=== PATIENT | female | born 1930 | race Caucasian/White ===

== ENCOUNTER 2017-05-31 12:02 | Inpatient (IN) | payer BC, OTHER ==
[~2017-05-31] VITALS: Ht 162.6 cm; Wt 81.4 kg
[~2017-05-31 12:02] MED LIST: ALEN5SOL PO; ATOR-54 PO; BNC/40 PO; CLON0.5T3 PO; CLOP1TAB5 PO; CLX20 PO; GLIM2TAB2 PO; HYDR-2977 PO; SITA50TA3 PO; VISION FORMULA
[2017-05-31] MEDS ORDERED: ONDANSETRON INJ 2 MG/ML 2 ML VIAL IV STA (12:30)
[2017-05-31] MEDS ORDERED: SODIUM CHLORIDE 0.9% 1000ML 1,000 ML IV STA ×2 (12:30→14:45)
--- NOTE | 2017-05-31 12:47 | DIAGNOSTIC IMAGING REPORT ---
CHEST ONE VIEW PORTABLE CLINICAL HISTORY: 87 years-old Female presenting with EVALUATE ALTERED MENTAL STATUS/WEAKNESS. TECHNIQUE: Portable upright AP view of the chest was obtained. COMPARISON: 04/12/2012. FINDINGS: Atherosclerosis of aortic arch. Cardiac silhouette enlarged. Minimal basilar opacities most probably on the right. No pleural effusion or pneumothorax. Osseous structures normal. Upper abdomen normal. IMPRESSION: 1. Minimal basilar opacities most probably on the right, possibly atelectasis. Electronically signed by: Dmitry Simon M.D. 05/31/2017 12:45 PM Dictated Date/Time: 05/31/2017 12:43 PM
[2017-05-31] MEDS ORDERED: DULA0.5I (13:00)
[2017-05-31] MEDS ORDERED: CITA10TA8 PO (13:00)
[2017-05-31] MEDS ORDERED: EXEN1INJ3 INJ (13:00)
[2017-05-31 13:05] LABS: BASO % 0.2 %; BASO ABS # 0.03 K/uL (0-0.2); EOS % 0.1 %; EOS ABS # 0.02 K/uL (0-0.5); HEMATOCRIT 38.9 % (37-47); HEMOGLOBIN 13.1 g/dL (12.0-16.0); IG# 0.11 K/uL (0.00-0.02); LYMPH ABS # 0.99 K/uL (1.2-3.4); MEAN CELL VOLUME 89.2 fL (80-100); MEAN CORPUSCULAR HGB CONC 33.7 g/dl (32-36); MEAN PLATELET VOLUME 10.2 fL (7.4-10.4); MONO % 6.2 %; MONO ABS # 1.02 K/uL (0.11-0.59); NEUT % 86.8 %; NEUT ABS # 14.31 K/uL (1.4-6.5); PLATELET COUNT 132 K/uL (130-400); RED CELL DISTRIBUTION WIDTH SD 45.7 fL (36.4-46.3); WHITE BLOOD COUNT 16.48 K/uL (4.8-10.8)
[2017-05-31 13:18] LABS: INR 1.4 (0.9-1.1); PTT PATIENT 26.9 SECONDS (21.0-31.0)
--- NOTE | 2017-05-31 13:40 | DIAGNOSTIC IMAGING REPORT ---
HEAD WITHOUT CONTRAST (CT) CLINICAL HISTORY: 87 years-old Female presenting with LEUNG, fatigue, slurred speech. TECHNIQUE: Multidetector CT imaging of the head was performed without the use of intravenous contrast. IV contrast: None. A dose lowering technique was used consistent with the principles of ALARA (as low as reasonably achievable). COMPARISON: 03/01/2011. CT DOSE (mGy.cm): The estimated cumulative dose is 1653.38. FINDINGS: Chuck Splitter topogram: Unremarkable. Ventricles and sulci normal in size. Incidental note made of lenin cisterna magna. Brain parenchyma normal in appearance with preserved dickson-white differentiation. No mass effect or midline shift. No hemorrhage or acute territorial infarct. No extra-axial fluid collection. Paranasal sinuses and mastoid air cells clear. Calvarium intact. Focal soft tissue defect may be present at the subcutaneous tissue of the right temporal region. IMPRESSION: 1. No acute intracranial abnormality. 2. Apparent soft tissue defect of the subcutaneous tissue in the right temporal region. This may be artifactual. Correlate clinically. Electronically signed by: Dmitry Simon M.D. 05/31/2017 1:38 PM Dictated Date/Time: 05/31/2017 1:34 PM
--- NOTE | 2017-05-31 13:49 | DIAGNOSTIC IMAGING REPORT ---
ABD/PELVIS NO IV OR ORAL CONT CLINICAL HISTORY: 87 years-old Female presenting with lower pain, vomiting, fatigue, back pain. TECHNIQUE: Multidetector CT of the abdomen and pelvis was performed without the use of intravenous contrast. IV contrast: None. A dose lowering technique was used consistent with the principles of ALARA (as low as reasonably achievable). COMPARISON: None. CT DOSE (mGy.cm): The estimated cumulative dose is 1653.38 mGy.cm. 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 Lung bases: Extensive dependent consolidation and volume loss in the right lower lobe likely passive atelectasis secondary to the adjacent small right pleural effusion. Dependent changes also noted in the left lung likely atelectasis. Multichamber enlargement of the heart. Coronary artery calcification. Small pericardial effusion. Liver: The liver has a nodular contour consistent with cirrhosis. Density of the liver borderline for hepatic steatosis. Allowing for noncontrast technique, focal irregular hypodense lesion in the medial left hepatic lobe (series 5 image 167). Biliary: No gross biliary ductal dilatation allowing for noncontrast technique. Mild gallbladder wall thickening. The gallbladder may contain sludge. The gallbladder is not significantly distended. Pancreas: Moderate parenchymal atrophy. Spleen: Few parenchymal calcifications may suggest prior granulomatous infection.. Adrenal glands: Normal noncontrast appearance. Kidneys and ureters: Hypodensity in the lateral interpolar region of the right kidney indeterminate but possibly cyst. Punctate nonobstructing calculus at the lower pole the left kidney adjacent to a possible cyst. No hydronephrosis. Ureters normal. Bladder: Incompletely evaluated secondary to underdistention. Pelvic organs: Uterus surgically absent. Bowel: Anastomosis is noted in the region of the upper rectum likely indicating prior sigmoidectomy. The appendix is poorly visualized within right lower quadrant fluid. No bowel obstruction. Mild wall thickening of the descending duodenum. Peritoneal cavity: Small amount of abdominal pelvic ascites, which is grossly simple appearing. Mild infiltration of the mesentery of the small bowel. No free gas. Lymph nodes: Numerous subcentimeter retroperitoneal lymph nodes noted, possibly reactive. Vasculature: Atherosclerosis of the normal caliber abdominal aorta. Abdominal wall: Focal fat-containing ventral hernias in the supraumbilical midline. One of the hernias contains the antimesenteric wall of transverse colon though no evidence of bowel obstruction is apparent. Mild body wall edema. Nonspecific edema in the lumbar region. Musculoskeletal: Degenerative changes of the spine. IMPRESSION: 1. Findings suspicious for a mass within the liver. Further evaluation with contrast-enhanced CT or MR is recommended, especially given the patient's underlying hepatocellular risk factors. 2. Findings consistent with cirrhosis. The presence of a small amount of abdominal pelvic ascites could suggest portal hypertension, although there is no splenomegaly or gross evidence of varices allowing for noncontrast technique. 3. Gallbladder wall thickening is likely secondary to the presence of cirrhosis and potential portal hypertension. No gallbladder distention to suggest cholecystitis. 4. Postsurgical changes of sigmoidectomy. No bowel obstruction. 5. Limited visualization of the appendix within the right lower quadrant fluid. 6. Right pleural effusion and basilar atelectasis. The report will be called/faxed according to standard departmental protocol. Electronically signed by: Dmitry Simon M.D. 05/31/2017 1:48 PM Dictated Date/Time: 05/31/2017 1:39 PM
[2017-05-31 14:33] LABS: ALBUMIN 3.1 gm/dl (3.4-5.0); ALT/SGPT 88 U/L (12-78); AST/SGOT 133 U/L (15-37); BLOOD UREA NITROGEN 79 mg/dl (7-18); CALCIUM 8.7 mg/dl (8.5-10.1); CARBON DIOXIDE 24 mmol/L (21-32); CREATININE 2.18 mg/dl (0.60-1.20); GLUCOSE 189 mg/dl (70-99); LIPASE 315 U/L (73-393); POTASSIUM 4.2 mmol/L (3.5-5.1); SODIUM 136 mmol/L (136-145)
[2017-05-31 14:41] LABS: ALKALINE PHOSPHATASE 312 U/L (45-117); CKMB 2.7 ng/ml (0.5-3.6); PHOSPHORUS 4.1 mg/dl (2.5-4.9); TOTAL PROTEIN 7.1 gm/dl (6.4-8.2)
[2017-05-31] MEDS ORDERED: CEFTRIAXONE SOD INJ 1 GM ADDVIAL IV STA (14:45)
--- NOTE | 2017-05-31 14:47 | EMERGENCY ROOM VISIT NOTE ---
History Report prepared by Víctor: Ignacio Hall Under the Supervision of: Dr. Taj Watters D.O. 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 She was recently seen by her PCP and advised to come to the ED for evaluation. She notes increased fatigue, tiredness, exhaustion, vomiting, headaches, abdominal pain, rhinorrhea , and productive cough with yellow sputum. She currently rates her pain a 3/10 in severity. She has vomited last night and this morning. She reports chest pain that has since resolved itself. She notes that she has used a heat pad, which has provided some mild relief. She normally ambulates without issue. She notes that she has been eating and drinking, though she has not been able to keep any food or liquids down. She has a history of diabetes. She notes that she has not checked her sugar today. She denies taking any new medications. She denies any history of smoking or alcohol use. She is currently taking Vytorin, which she notes is new. She notes that she has taken her medications today. She denies any fevers, shortness of breath, back pain, diarrhea, leg pain, or leg swelling. 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 She denies any leg pain or leg swelling. Review of Systems See HPI for pertinent positives & negatives. A total of 10 systems reviewed and were otherwise negative. Past Medical & Surgical Medical Problems: (1) ELYSE (acute kidney injury) (2) Ascites (3) Benign essential hypertension (4) colon cancer (5) Diabetes mellitus type 2 (6) Hyperlipidemia Family History No pertinent family history reported. Social History Smoking Status: Never Smoker Marital Status: Current/Historical Medications Scheduled Atorvastatin (Lipitor), 20 MG PO DAILY Citalopram Hydrobromide (Celexa), 10 MG PO DAILY Clonazepam (Klonopin), 1 MG PO HS Clopidogrel Bisulfate (Plavix), 75 MG PO DAILY Exenatide (Bydureon), 2 MG INJ WK Glimepiride (Glimepiride), 4 MG PO BID Hydralazine HCl (Hydralazine HCl), 10 MG PO BID Miscellaneous Medications Dulaglutide (Trulicity) Allergies Coded Allergies: Erythromycin (Verified Allergy, Unknown, 05/31/17) Physical Exam Vital Signs Date Time Temp Pulse Resp B/P (MAP) Pulse Ox O2 Delivery O2 Flow Rate FiO2 05/31/17 15:52 80 20 95 05/31/17 15:37 82 14 96 05/31/17 15:22 80 21 96 05/31/17 15:07 80 18 96 05/31/17 15:02 81 18 95 05/31/17 14:32 79 17 95 05/31/17 14:02 81 18 96 05/31/17 13:36 81 18 122/70 97 Nasal Cannula 3.0 05/31/17 13:36 122/70 05/31/17 13:04 Nasal Cannula 3.0 05/31/17 13:02 79 20 90 05/31/17 12:50 Room Air 05/31/17 12:32 76 22 93 05/31/17 12:30 98 Room Air 05/31/17 12:25 81 05/31/17 12:23 120/69 05/31/17 12:11 36.9 78 20 115/77 91 Room Air Physical Exam GENERAL: Patient is listless, slow to respond to questions. Does not appear to be in pain. EYES: The conjunctivae are clear. The pupils are round and reactive. EARS, NOSE, MOUTH AND THROAT: The nose is without any evidence of any deformity. Mucous membranes are moist tongue is midline NECK: The neck is nontender and supple. RESPIRATORY: Normal respiratory effort is noted there is no evidence of wheezing rhonchi or rales CARDIOVASCULAR: Regular rate and rhythm noted there no murmurs rubs or gallops normal S1 normal S2 GASTROINTESTINAL: The abdomen is mildly distended, but soft. Bowel sounds are present in all quadrants. No guarding or rigidity appreciated. PELVIS: The Pelvis is stable. No tenderness to palpation is noted. BACK: No midline tenderness or or step-off noted range of motion in flexion extension as well as rotation no signs of muscle spasm noted MUSCULOSKELETAL/EXTREMITIES: There is no evidence of gross deformity full range of motion is noted in the hips and shoulders. Pedal edema bilaterally. SKIN: There is no obvious evidence of any rash. There are no petechiae, pallor or cyanosis noted. NEUROLOGIC: Speech was pressured but understandable. Strength diminished bilaterally. No facial droop appreciated. Medical Decision & Procedures ER Provider Diagnostic Interpretation: Radiology results as stated below per my review and radiologist interpretation: CHEST ONE VIEW PORTABLE CLINICAL HISTORY: 87 years-old Female presenting with EVALUATE ALTERED MENTAL STATUS/WEAKNESS. TECHNIQUE: Portable upright AP view of the chest was obtained. COMPARISON: 04/12/2012. FINDINGS: Atherosclerosis of aortic arch. Cardiac silhouette enlarged. Minimal basilar opacities most probably on the right. No pleural effusion or pneumothorax. Osseous structures normal. Upper abdomen normal. IMPRESSION: 1. Minimal basilar opacities most probably on the right, possibly atelectasis. Electronically signed by: Dmitry Simon M.D. 05/31/2017 12:45 PM Dictated Date/Time: 05/31/2017 12:43 PM HEAD WITHOUT CONTRAST (CT) CLINICAL HISTORY: 87 years-old Female presenting with LEUNG, fatigue, slurred speech. TECHNIQUE: Multidetector CT imaging of the head was performed without the use of intravenous contrast. IV contrast: None. A dose lowering technique was used consistent with the principles of ALARA (as low as reasonably achievable). COMPARISON: 03/01/2011. CT DOSE (mGy.cm): The estimated cumulative dose is 1653.38. 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 Ventricles and sulci normal in size. Incidental note made of lenin cisterna magna. Brain parenchyma normal in appearance with preserved dickson-white differentiation. No mass effect or midline shift. No hemorrhage or acute territorial infarct. No extra-axial fluid collection. Paranasal sinuses and mastoid air cells clear. Calvarium intact. Focal soft tissue defect may be present at the subcutaneous tissue of the right temporal region. IMPRESSION: 1. No acute intracranial abnormality. 2. Apparent soft tissue defect of the subcutaneous tissue in the right temporal region. This may be artifactual. Correlate clinically. Electronically signed by: Dmitry Simon M.D. 05/31/2017 1:38 PM Dictated Date/Time: 05/31/2017 1:34 PM ABD/PELVIS NO IV OR ORAL CONT CLINICAL HISTORY: 87 years-old Female presenting with lower pain, vomiting, fatigue, back pain. TECHNIQUE: Multidetector CT of the abdomen and pelvis was performed without the use of intravenous contrast. IV contrast: None. A dose lowering technique was used consistent with the principles of ALARA (as low as reasonably achievable). COMPARISON: None. CT DOSE (mGy.cm): The estimated cumulative dose is 1653.38 mGy.cm. 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 Lung bases: Extensive dependent consolidation and volume loss in the right lower lobe likely passive atelectasis secondary to the adjacent small right pleural effusion. Dependent changes also noted in the left lung likely atelectasis. Multichamber enlargement of the heart. Coronary artery calcification. Small pericardial effusion. Liver: The liver has a nodular contour consistent with cirrhosis. Density of the liver borderline for hepatic steatosis. Allowing for noncontrast technique, focal irregular hypodense lesion in the medial left hepatic lobe (series 5 image 167). Biliary: No gross biliary ductal dilatation allowing for noncontrast technique. Mild gallbladder wall thickening. The gallbladder may contain sludge. The gallbladder is not significantly distended. Pancreas: Moderate parenchymal atrophy. Spleen: Few parenchymal calcifications may suggest prior granulomatous infection.. Adrenal glands: Normal noncontrast appearance. Kidneys and ureters: Hypodensity in the lateral interpolar region of the right kidney indeterminate but possibly cyst. Punctate nonobstructing calculus at the lower pole the left kidney adjacent to a possible cyst. No hydronephrosis. Ureters normal. Bladder: Incompletely evaluated secondary to underdistention. Pelvic organs: Uterus surgically absent. Bowel: Anastomosis is noted in the region of the upper rectum likely indicating prior sigmoidectomy. The appendix is poorly visualized within right lower quadrant fluid. No bowel obstruction. Mild wall thickening of the descending duodenum. Peritoneal cavity: Small amount of abdominal pelvic ascites, which is grossly simple appearing. Mild infiltration of the mesentery of the small bowel. No free gas. Lymph nodes: Numerous subcentimeter retroperitoneal lymph nodes noted, possibly reactive. Vasculature: Atherosclerosis of the normal caliber abdominal aorta. Abdominal wall: Focal fat-containing ventral hernias in the supraumbilical midline. One of the hernias contains the antimesenteric wall of transverse colon though no evidence of bowel obstruction is apparent. Mild body wall edema. Nonspecific edema in the lumbar region. Musculoskeletal: Degenerative changes of the spine. IMPRESSION: 1. Findings suspicious for a mass within the liver. Further evaluation with contrast-enhanced CT or MR is recommended, especially given the patient's underlying hepatocellular risk factors. 2. Findings consistent with cirrhosis. The presence of a small amount of abdominal pelvic ascites could suggest portal hypertension, although there is no splenomegaly or gross evidence of varices allowing for noncontrast technique. 3. Gallbladder wall thickening is likely secondary to the presence of cirrhosis and potential portal hypertension. No gallbladder distention to suggest cholecystitis. 4. Postsurgical changes of sigmoidectomy. No bowel obstruction. 5. Limited visualization of the appendix within the right lower quadrant fluid. 6. Right pleural effusion and basilar atelectasis. The report will be called/faxed according to standard departmental protocol. Electronically signed by: Dmitry Simon M.D. 05/31/2017 1:48 PM Dictated Date/Time: 05/31/2017 1:39 PM Laboratory Results 05/31/17 12:40 Red Blood Count 4.36, Mean Corpuscular Volume 89.2, Mean Corpuscular Hemoglobin 30.0, Mean Corpuscular Hemoglobin Concent 33.7, Mean Platelet Volume 10.2, Neutrophils (%) (Auto) 86.8, Lymphocytes (%) (Auto) 6.0, Monocytes (%) (Auto) 6.2, Eosinophils (%) (Auto) 0.1, Basophils (%) (Auto) 0.2, Neutrophils # (Auto) 14.31, Lymphocytes # (Auto) 0.99, Monocytes # (Auto) 1.02, Eosinophils # (Auto) 0.02, Basophils # (Auto) 0.03 05/31/17 12:40 Test 05/31/17 00:00 05/31/17 12:40 05/31/17 12:52 05/31/17 13:02 Urine WBC (Auto) >30 /hpf (0-5) Urine RBC (Auto) 10-30 /hpf (0-4) Urine Hyaline Casts (Auto) 1-5 /lpf (0-5) Urine Epithelial Cells (Auto) 10-20 /lpf (0-5) Urine Bacteria (Auto) 4+ (NEG) Urine Crystals CALCIUM OXALATE (NONE Urine Pathogenic Casts /lpf (0) White Blood Count 16.48 K/uL (4.8-10.8) Red Blood Count 4.36 M/uL (4.2-5.4) Hemoglobin 13.1 g/dL (12.0-16.0) Hematocrit 38.9 % (37-47) Mean Corpuscular Volume 89.2 fL (80-100) Mean Corpuscular Hemoglobin 30.0 pg (25-34) Mean Corpuscular Hemoglobin Concent 33.7 g/dl (32-36) Platelet Count 132 K/uL (130-400) Mean Platelet Volume 10.2 fL (7.4-10.4) Neutrophils (%) (Auto) 86.8 % Lymphocytes (%) (Auto) 6.0 % Monocytes (%) (Auto) 6.2 % Eosinophils (%) (Auto) 0.1 % Basophils (%) (Auto) 0.2 % Neutrophils # (Auto) 14.31 K/uL (1.4-6.5) Lymphocytes # (Auto) 0.99 K/uL (1.2-3.4) Monocytes # (Auto) 1.02 K/uL (0.11-0.59) Eosinophils # (Auto) 0.02 K/uL (0-0.5) Basophils # (Auto) 0.03 K/uL (0-0.2) RDW Standard Deviation 45.7 fL (36.4-46.3) RDW Coefficient of Variation 14.0 % (11.5-14.5) Immature Granulocyte % (Auto) 0.7 % Immature Granulocyte # (Auto) 0.11 K/uL (0.00-0.02) Prothrombin Time 14.3 SECONDS (9.0-12.0) Prothromb Time International Ratio 1.4 (0.9-1.1) Activated Partial Thromboplast Time 26.9 SECONDS (21.0-31.0) Partial Thromboplastin Ratio 1.0 Anion Gap 9.0 mmol/L (3-11) Est Creatinine Clear Calc Drug Dose 18.4 ml/min Estimated GFR () 22.7 Estimated GFR (Non- 19.6 BUN/Creatinine Ratio 36.1 (10-20) Calcium Level 8.7 mg/dl (8.5-10.1) Phosphorus Level 4.1 mg/dl (2.5-4.9) Magnesium Level 2.4 mg/dl (1.8-2.4) Total Bilirubin 0.9 mg/dl (0.2-1) Direct Bilirubin 0.3 mg/dl (0-0.2) Aspartate Amino Transf (AST/SGOT) 133 U/L (15-37) Alanine Aminotransferase (ALT/SGPT) 88 U/L (12-78) Alkaline Phosphatase 312 U/L (45-117) Ammonia 26.0 umol/L (11-32) Total Creatine Kinase 99 U/L (26-192) Creatine Kinase MB 2.7 ng/ml (0.5-3.6) Creatine Kinase MB Ratio 2.7 (0-3.0) Troponin I < 0.015 ng/ml (0-0.045) Pro-B-Type Natriuretic Peptide 1053 pg/ml (0-1800) Total Protein 7.1 gm/dl (6.4-8.2) Albumin 3.1 gm/dl (3.4-5.0) Lipase 315 U/L (73-393) Thyroid Stimulating Hormone (TSH) 2.200 uIu/ml (0.300-4.500) Free Thyroxine 1.59 ng/dl (0.80-1.60) Hepatitis B Surface Antigen NEG (NEG) Hepatitis C Antibody NEG (NEG) Bedside Lactic Acid Venous 3.04 mmol/L (0.90-1.70) Venous Blood pH 7.37 (7.36-7.41) Venous Blood Partial Pressure CO2 41 mmHg (38.0-50.0) Venous Blood Partial Pressure O2 31 mmHg Venous Blood HCO3 23 mmol/L Venous Blood Oxygen Saturation < 60.0 % Venous Blood Base Excess -2.4 mEq/L Test 05/31/17 14:30 Laboratory results per my review. Medications Administered Medications (Trade) Dose Ordered Sig/Paolo Route Start Time Stop Time Status Last Admin Dose Admin Sodium Chloride 1,000 ml @ 999 mls/hr Q1H1M STAT IV 05/31/17 12:30 05/31/17 13:30 DC 05/31/17 12:57 999 MLS/HR Ondansetron HCl (Zofran Inj) 4 mg NOW STAT IV 05/31/17 12:30 05/31/17 12:31 DC 05/31/17 12:57 4 MG Ceftriaxone Sodium (Rocephin Inj) 1 gm NOW STAT IV 05/31/17 14:45 05/31/17 14:46 DC 05/31/17 14:59 1 GM Sodium Chloride 1,000 ml @ 999 mls/hr Q1H1M STAT IV 05/31/17 14:45 05/31/17 15:45 DC 05/31/17 14:45 999 MLS/HR ECG Indication: other (fatigue) Rate (beats per minute): 78 Rhythm: normal sinus Findings: nonspecific-ST abn, no ectopy Change: no significant change (When compared to 04/12/2012) ED Course 1220: The patient was evaluated in room B2. A complete history and physical examination were performed. 1230: Ordered Zofran 4mg Iv and NSS 1,000 ml @ 999 mls/hr IV 1320:I reassessed the patient at this time. She is resting comfortably. 1445: Ordered NSS 1,000 ml @ 999 mls/hr IV amd Rocephin 1 gm IV 1455: I spoke with Dr. Pollock, hospitalist. We discussed the patients case. The patient will be evaluated by the [facility] for further management. Medical Decision Prior records/ancillary studies reviewed and summarized above. Nursing notes reviewed. The patient's history was concerning for weakness. Differential diagnosis: Etiologies such as metabolic, infection, hypo/hyperglycemia, electrolyte abnormalities, cardiac sources, intracerebral event, toxicologic, neurologic, as well as others were entertained. The patient is an 87-year-old female who presented to the emergency department from her primary care physician's office. The patient's primary care physician called the emergency department and discussed her presentation with me. She was very concerned that the patient may have suffered a stroke. I discussed the patient's laboratory and radiographic studies with her and her significant other. Her presentation appear to be consistent with an overall encephalopathy and generalized weakness. She was found have signs of urinary tract infection but also has a CT which showed ascites and a possible mass in her liver. She does have a history of a colon cancer in the past but there is no definite metastasis at that time. I discussed her case with the on-call [facility] hospitalist group. They've agreed to evaluate the patient in the emergency department for further management and disposition. The patient was treated with IV fluids and IV antibiotics. She was reevaluated multiple times. Medication Reconcilliation Current Medication List: was personally reviewed by me Blood Pressure Screening Patient's blood pressure: Normal blood pressure Consults Time Called: 1450 Consulting Physician: Dr. Pollock hospitalist Returned Call: [address] Pollock hospitalist. We discussed the patients case. The patient will be evaluated by the [facility] Hospitalist Group for further management. Impression Primary Impression: Weakness Additional Impressions: Liver mass Dehydration UTI (urinary tract infection) Acute kidney injury Scribe Attestation The scribe's documentation has been prepared under my direction and personally reviewed by me in its entirety. I confirm that the note above accurately reflects all work, treatment, procedures, and medical decision making performed by me. Departure Information Dispostion Being Evaluated By Hospitalist Referrals Avis Morgan D.O. (PCP) Patient Instructions My [facility] Problem Qualifiers Additional Impressions: UTI (urinary tract infection) Urinary tract infection type: acute cystitis Hematuria presence: without hematuria Qualified Codes: N30.00 - Acute cystitis without hematuria
[2017-05-31 15:50] LABS: HEP C IGG 13 YRS+OLDER_RFLX NEG (NEG)
[2017-05-31] MEDS ORDERED: GLUCAGON FOR INJ 1 MG VIAL SQ PRN (16:15)
[2017-05-31] MEDS ORDERED: DEXTROSE 50% 50 ML SYR IV PRN (16:15)
[2017-05-31] MEDS ORDERED: GLUCOSE 40% GEL 15 GM TUBE PO PRN (16:15)
[2017-05-31] MEDS ORDERED: GLUCOSE 10 TABS/TUBE PO PRN (16:15)
--- NOTE | 2017-05-31 16:50 | HISTORY & PHYSICAL EXAMINATION ---
DATE OF ADMISSION: 05/31/2017 PRIMARY CARE PHYSICIAN: Dr. Avis Morgan. CHIEF COMPLAINT: Abdominal distention, discomfort and frequency with weakness and tiredness for the last 2 days. HISTORY OF PRESENT COMPLAINT: She is an 87-year-old female with significant past medical history of diabetes type 2, chronic kidney disease stage III, anxiety, hyperlipidemia, hypertension, and also history of malignant melanoma of the skin and colon cancer, apparently has been complaining of nonspecific URI symptoms followed by abdominal distention and discomfort for the last 2 days. She also complains to have extreme tiredness and fatigue with it. She complains to have frequent low volume urine without any dysuria. She does not have any fever, chills or rigors. She was seen in the clinic today and I have sent in to the ER for further evaluation. In the Emergency Room, she was noted to have abdominal distention with ascites. CT scan did show cirrhotic liver and her white count elevated and UA suggestive of infection, but given the history of colon cancer, the liver mass and/or cirrhosis has to be evaluated for that. From this point, she was admitted to medical floor for continuation of care. PAST MEDICAL HISTORY: Significant for type 2 diabetes on insulin, chronic kidney disease stage III, anxiety, hyperlipidemia, hypertension, history of malignant melanoma of the skin and also history of colon cancer status post surgery many years ago. PAST SURGICAL HISTORY: Significant for partial colectomy in 2005, removal of ovary with hysterectomy in 1998. FAMILY HISTORY: Nothing significant. SOCIAL HISTORY: She is . She has 2 children. She lives with her . She never smoked. She uses alcohol very rarely and she has been reasonably ambulant. ALLERGIES: SHE IS ALLERGIC TO ERYTHROMYCIN. MEDICATIONS: She has been taking atorvastatin 20 mg daily, glimepiride 4 mg b.i.d., Trulicity 1.5 mg/4.5 mL by injection as directed, exenatide 2 mg injection 2 mg per week. She also takes amlodipine 10 mg daily, Plavix 75 mg daily, Klonopin 0.5 mg at night, hydralazine 10 mg twice daily and Celexa 10 mg. She takes losartan 50 mg tablet as well and hydrochlorothiazide 12.5 mg daily, and calcium with vitamin D. REVIEW OF SYSTEMS: Other systems reviewed are unremarkable except for those mentioned in history of present complaint. PHYSICAL EXAMINATION: GENERAL: In the Emergency Room, she was not having any acute distress, but she looks pale and dry. VITAL SIGNS: Her temperature is 36.9, pulse of 76, blood pressure 120/69, saturation 93% on room air. HEENT: Unremarkable except dryness of the mucous membrane. NECK: Supple. CHEST: Clear to auscultate bilaterally. HEART: S1, S2 regular. ABDOMEN: Distended, soft, mildly tender in the hypogastrium. Renal angles were not tender. Cutaneous edema and moderate ascites on clinical examination. Degroot sign negative. EXTREMITIES: 1+ edema bilaterally. MUSCULOSKELETAL SYSTEM: Did not show any acute arthritis involving any joint. CENTRAL NERVOUS SYSTEM: She was alert and awake, oriented, generally weak but no focal sensory and/or motor deficit appreciated. LABORATORY DATA: Noted today - white count 16.48, H&H 13.1/38.9, platelet was 132. Venous blood gas 7.37 pH, pCO2 41 and O2 of 31. Chemistries: Sodium 136, potassium 4.2, chloride 103, carbon dioxide 24, BUN 79, creatinine 2.18, random glucose 189. Bilirubin 0.3, AST 133, ALT 88, alkaline phosphatase 312, ammonia is 26.0. Troponin less than 0.015. Albumin 3.1, TSH 2.2. T4 1.59. INR is 1.4, PTT ratio is 1. UA examination is suggestive of infection, sent for culture. Hepatitis B antigen negative, hepatitis C antibody negative. IMAGING DATA: CT of the head: No acute intracranial findings. Chest x-ray: Minimal bibasilar opacities, probably atelectatic. CT of the abdomen and pelvis reported as findings suspicious for a mass within the liver, further evaluation with contrast enhanced CT or MRI is recommended, especially given this patient's underlying hepatocellular disease factors. Findings consistent with cirrhosis and presence of a small amount of ascites, gallbladder wall thickening without any evidence of cholecystitis, right pleural effusion and basilar atelectasis. EKG was in sinus rhythm, rate of 78 per minute, normal axis, low voltage quality and nonspecific ST-T wave changes. IMPRESSION AND PLAN: 1. Urinary tract infection. The patient will be admitted to medical floor. She was started with intravenous ceftriaxone. Urine has been sent for culture. Will continue ceftriaxone for now. She was advised to drink plenty of fluid. 2. Acute kidney injury. Her creatinine seems to be normal before this episode, clinically she is dehydrated. We will give her adequate amount of IV fluid and monitor the kidney function. She may need nephrology evaluation if the kidney function does not improve with fluid resuscitation. 3. New diagnosis of cirrhosis, most likely secondary to fatty liver disease. We will get hepatitis panel and ultrasound of the abdomen to evaluate requirement for paracentesis. We will get GI evaluation while in the hospital. 4. Hepatic lesion. Will need to evaluate that further by doing an MR or as per GI evaluation. It could be secondary to metastatic disease, given the history of colon cancer. 5. Diabetes type 2 on insulin. Continue with sliding scale coverage while in the hospital. 6. Hyperlipidemia. Holding her statin at this time. 7. Hypertension. Blood pressure seems to be uncontrolled. 8. Gastrointestinal prophylaxis with Protonix. 9. Deep venous thrombosis prophylaxis with subcutaneous heparin. 10. Code status. She will be a full code. In my clinical judgment, the beneficiary meets criteria as per CMS for 2-midnight stay in the hospital. MTDD
[2017-05-31] MEDS: SODIUM CHLORIDE 0.9% 1000ML 1,000 ML IV SCH (17:00)
[2017-05-31 17:09] VITALS: BP 106/67; PULSE 81; TEMP 36.5; O2SAT 95; Ht 162.6 cm; Wt 81.4 kg
[2017-05-31] MEDS ORDERED: SODIUM CHLORIDE 0.65% NA SOLN 45 ML (OCEAN) ONE (19:47)
[2017-05-31] MEDS: CLONAZEPAM 0.5 MG TAB PO SCH (20:23)
[2017-05-31] MEDS: HydrALAZINE 10 MG TAB PO SCH (20:23)
[2017-05-31] MEDS: INSULIN ASPART 100 UNITS/ML 3 ML PEN SC SCH (20:26)
[2017-05-31] MEDS: HEPARIN SOD 5000 UNIT/0.5 ML CARP SQ SCH (20:26)
[2017-05-31 23:35] VITALS: BP 95/61; PULSE 75; TEMP 36.8; O2SAT 94
[2017-05-31 23:36] VITALS: BP 102/63; PULSE 50; TEMP 36.5; O2SAT 96
[2017-06-01] MEDS: SODIUM CHLORIDE 0.9% 1000ML 1,000 ML IV SCH ×2 (02:06→12:30)
[2017-06-01] MEDS: HEPARIN SOD 5000 UNIT/0.5 ML CARP SQ SCH ×3 (06:07→20:15)
[2017-06-01 06:35] LABS: HEMATOCRIT 35.6 % (37-47); HEMOGLOBIN 11.6 g/dL (12.0-16.0); MEAN CELL VOLUME 90.1 fL (80-100); MEAN CORPUSCULAR HEMOGLOBIN 29.4 pg (25-34); MEAN CORPUSCULAR HGB CONC 32.6 g/dl (32-36); MEAN PLATELET VOLUME 10.3 fL (7.4-10.4); PLATELET COUNT 143 K/uL (130-400); RED CELL DISTRIBUTION WIDTH CV 14.1 % (11.5-14.5); WHITE BLOOD COUNT 15.91 K/uL (4.8-10.8)
[2017-06-01 07:06] LABS: ALBUMIN 2.8 gm/dl (3.4-5.0); CALCIUM 7.6 mg/dl (8.5-10.1); CREATININE 2.26 mg/dl (0.60-1.20); POTASSIUM 4.1 mmol/L (3.5-5.1)
[2017-06-01 07:09] LABS: TOTAL PROTEIN 6.3 gm/dl (6.4-8.2)
[2017-06-01 08:17] VITALS: BP 106/66; PULSE 87; TEMP 36.5; O2SAT 91
[2017-06-01] MEDS: HydrALAZINE 10 MG TAB PO SCH ×2 (08:40→20:11)
[2017-06-01] MEDS: CLOPIDOGREL BISULFATE 75 MG TAB PO SCH (08:40)
[2017-06-01] MEDS: CITALOPRAM 20 MG TAB PO SCH (08:40)
[2017-06-01] MEDS: INSULIN ASPART 100 UNITS/ML 3 ML PEN SC SCH ×4 (08:41→20:18)
--- NOTE | 2017-06-01 09:57 | Gastrointestinal Consultation ---
Gastrointestinal Consultation Date of Consultation: Jun 01, 2017 Attending Physician: Dr. Stone Consulting Physician: Dr. Villarreal Reason for Consultation: new finding of cirrhosis on imaging History of Present Illness Patient is a 87 year old female with multiple medical problems including DM, CAD , CKD, HTN, h/o melanoma, and colon cnacer 2006 s/p resection who was admitted with fatigue, vomiting, and abdominal pain. Evaluation in the ER was significant for elevated WBC, BUN and creatitine as well as UA suggestive of a UTI. She was started on IVF hydration and antibiotics. CT scan wiithout oral or IV contrast showed a nodular cirrhotic appearing liver and a ?lesion in the left lobe of the liver. A small amount of pelvic ascites is noted as well. LFTs are mildly elevated, INR is 1.4 and platelet count is 140. Her last colonoscopy was approximately 8-10 years ago and she was told after 79 she did not need another one. Denies and melena or hematochezia. Was never told she was cirrhotic. This AM she is feeling tired but much improved. Ate her breakfast. Drinking coffee and reading the newspaper. No known family history of liver disease. No ETOH history. Long standing diabetes. Past Medical/Surgical History Medical Problems: (1) Acute kidney injury Status: Acute (2) Dehydration Status: Acute (3) Liver mass Status: Acute (4) UTI (urinary tract infection) Status: Acute (5) Weakness Status: Acute Past Medical History: as note din HPI Past Surgical History: SHAAN/BSO colon resection 2005 Family History non-contributory Social History Smoking Status: Never Smoker Alcohol Use: none Drug Use: none Marital Status: Housing Status: lives with family Occupation Status: retired Allergies Coded Allergies: Erythromycin (Verified Allergy, Unknown, 05/31/17) Current Medications Home Meds and Scripts Medications Dose Route/Sig Max Daily Dose Days Date Category Bydureon (Exenatide) 2 Mg Inj 2 Mg INJ WK 05/31/17 Reported Trulicity (Dulaglutide) 1.5 Mg/0.5 Ml Inj 05/31/17 Reported Celexa (Citalopram Hydrobromide) 10 Mg Tab 10 Mg PO DAILY 05/31/17 Reported Hydralazine HCl 10 Mg Tab 10 Mg PO BID 09/23/14 Reported Glimepiride 2 Mg Tab 4 Mg PO BID 4/24/15 Reported Plavix (Clopidogrel Bisulfate) 75 Mg Tab 75 Mg PO DAILY 04/12/12 Reported Lipitor (Atorvastatin) 20 Mg Tab 20 Mg PO DAILY 04/12/12 Reported Klonopin (Clonazepam) 0.5 Mg Tab 1 Mg PO HS 03/25/06 Reported Review of Systems 12 systems reviewed and negative except as noted Physical Exam Date Time Temp Pulse Resp B/P (MAP) Pulse Ox O2 Delivery O2 Flow Rate FiO2 06/01/17 08:17 36.5 87 18 106/66 (79) 91 Nasal Cannula 2.0 06/01/17 00:00 Nasal Cannula 2.0 05/31/17 23:36 36.5 50 18 102/63 (76) 96 Room Air 05/31/17 23:35 36.8 75 16 95/61 (72) 94 Nasal Cannula 2.0 05/31/17 17:09 36.5 81 18 106/67 95 Nasal Cannula 2.0 05/31/17 16:07 80 22 95 05/31/17 15:58 113/60 05/31/17 15:52 80 20 95 05/31/17 15:37 82 14 96 05/31/17 15:22 80 21 96 05/31/17 15:07 80 18 96 05/31/17 15:02 81 18 95 05/31/17 14:32 79 17 95 05/31/17 14:02 81 18 96 05/31/17 13:36 81 18 122/70 97 Nasal Cannula 3.0 05/31/17 13:36 122/70 05/31/17 13:04 Nasal Cannula 3.0 05/31/17 13:02 79 20 90 05/31/17 12:50 Room Air 05/31/17 12:32 76 22 93 05/31/17 12:30 98 Room Air 05/31/17 12:25 81 05/31/17 12:23 120/69 05/31/17 12:11 36.9 78 20 115/77 91 Room Air General Appearance: WD/WN, no apparent distress Eyes: normal inspection, PERRL ENT: normal ENT inspection, hearing grossly normal, pharynx normal Neck: supple, no adenopathy, no JVD Respiratory/Chest: chest non-tender, lungs clear, normal breath sounds, no accessory muscle use Cardiovascular: regular rate, rhythm Abdomen: normal bowel sounds, non tender, soft, + pertinent finding (obese) Extremities: normal range of motion, non-tender, + pedal edema Neurologic/Psych: traveling secretary II-XII nml as tested, no motor/sensory deficits, alert, oriented x 3 Skin: normal color, no jaundice, warm/dry, no rash Laboratory Results Last 24 Hours Test 05/31/17 12:33 05/31/17 12:40 05/31/17 12:52 05/31/17 13:02 Bedside Glucose 204 mg/dl White Blood Count 16.48 K/uL Red Blood Count 4.36 M/uL Hemoglobin 13.1 g/dL Hematocrit 38.9 % Mean Corpuscular Volume 89.2 fL Mean Corpuscular Hemoglobin 30.0 pg Mean Corpuscular Hemoglobin Concent 33.7 g/dl Platelet Count 132 K/uL Mean Platelet Volume 10.2 fL Neutrophils (%) (Auto) 86.8 % Lymphocytes (%) (Auto) 6.0 % Monocytes (%) (Auto) 6.2 % Eosinophils (%) (Auto) 0.1 % Basophils (%) (Auto) 0.2 % Neutrophils # (Auto) 14.31 K/uL Lymphocytes # (Auto) 0.99 K/uL Monocytes # (Auto) 1.02 K/uL Eosinophils # (Auto) 0.02 K/uL Basophils # (Auto) 0.03 K/uL RDW Standard Deviation 45.7 fL RDW Coefficient of Variation 14.0 % Immature Granulocyte % (Auto) 0.7 % Immature Granulocyte # (Auto) 0.11 K/uL Prothrombin Time 14.3 SECONDS Prothromb Time International Ratio 1.4 Activated Partial Thromboplast Time 26.9 SECONDS Partial Thromboplastin Ratio 1.0 Sodium Level 136 mmol/L Potassium Level 4.2 mmol/L Chloride Level 103 mmol/L Carbon Dioxide Level 24 mmol/L Anion Gap 9.0 mmol/L Blood Urea Nitrogen 79 mg/dl Creatinine 2.18 mg/dl Est Creatinine Clear Calc Drug Dose 18.4 ml/min Estimated GFR () 22.7 Estimated GFR (Non- 19.6 BUN/Creatinine Ratio 36.1 Random Glucose 189 mg/dl Calcium Level 8.7 mg/dl Phosphorus Level 4.1 mg/dl Magnesium Level 2.4 mg/dl Total Bilirubin 0.9 mg/dl Direct Bilirubin 0.3 mg/dl Aspartate Amino Transf (AST/SGOT) 133 U/L Alanine Aminotransferase (ALT/SGPT) 88 U/L Alkaline Phosphatase 312 U/L Ammonia 26.0 umol/L Total Creatine Kinase 99 U/L Creatine Kinase MB 2.7 ng/ml Creatine Kinase MB Ratio 2.7 Troponin I < 0.015 ng/ml Pro-B-Type Natriuretic Peptide 1053 pg/ml Total Protein 7.1 gm/dl Albumin 3.1 gm/dl Lipase 315 U/L Thyroid Stimulating Hormone (TSH) 2.200 uIu/ml Free Thyroxine 1.59 ng/dl Hepatitis B Surface Antigen NEG Hepatitis C Antibody NEG Bedside Lactic Acid Venous 3.04 mmol/L Venous Blood pH 7.37 Venous Blood Partial Pressure CO2 41 mmHg Venous Blood Partial Pressure O2 31 mmHg Venous Blood HCO3 23 mmol/L Venous Blood Oxygen Saturation < 60.0 % Venous Blood Base Excess -2.4 mEq/L Test 05/31/17 16:58 05/31/17 19:45 06/01/17 05:39 06/01/17 08:12 Bedside Glucose 147 mg/dl 146 mg/dl 76 mg/dl White Blood Count 15.91 K/uL Red Blood Count 3.95 M/uL Hemoglobin 11.6 g/dL Hematocrit 35.6 % Mean Corpuscular Volume 90.1 fL Mean Corpuscular Hemoglobin 29.4 pg Mean Corpuscular Hemoglobin Concent 32.6 g/dl RDW Standard Deviation 47.0 fL RDW Coefficient of Variation 14.1 % Platelet Count 143 K/uL Mean Platelet Volume 10.3 fL Sodium Level 139 mmol/L Potassium Level 4.1 mmol/L Chloride Level 107 mmol/L Carbon Dioxide Level 21 mmol/L Anion Gap 11.0 mmol/L Blood Urea Nitrogen 83 mg/dl Creatinine 2.26 mg/dl Est Creatinine Clear Calc Drug Dose 17.8 ml/min Estimated GFR () 21.7 Estimated GFR (Non- 18.8 BUN/Creatinine Ratio 36.8 Random Glucose 59 mg/dl Calcium Level 7.6 mg/dl Magnesium Level 2.3 mg/dl Total Bilirubin 0.6 mg/dl Aspartate Amino Transf (AST/SGOT) 138 U/L Alanine Aminotransferase (ALT/SGPT) 79 U/L Alkaline Phosphatase 296 U/L Total Protein 6.3 gm/dl Albumin 2.8 gm/dl Globulin 3.5 gm/dl Albumin/Globulin Ratio 0.8 Impression Patient is a 87 year old female with multiple medical problems including long standing diabetes admitted with generalized weakness and fatigue found to have a UTI. Non-contrast CT showed nodular cirrhotic appearing liver and a ?lesion in the left lobe of the liver. Labs consistent with cirrhosis. With a history of colon cancer a metastatic lesion is a possibility vs primary liver lesion vs benign process. She will need outpatient follow up after discharge. Plan - Management of acute kidney injury and UTI per primary service. - She will need an US of the liver if can be done while she is here. - Will need 4phase contrast CT or the liver or liver MRI once her renal function improves. - Will need outpatient follow up after discharge regarding the new dx of cirrhosis.
[2017-06-01] MEDS ORDERED: CEFTRIAXONE SOD INJ 1,000 MG in DEXTROSE 5% 50ML 50 ML IV SCH (14:00)
[2017-06-01] MEDS ORDERED: VANCOMYCIN INJ 1,000 MG in SODIUM CHLORIDE 0.9% 250ML 250 ML IV SCH (14:30)
[2017-06-01] MEDS ORDERED: VANCOMYCIN CONSULT ACTIVE PRN (14:45)
[2017-06-01] MEDS ORDERED: CEFEPIME CONSULT ACTIVE PRN (14:45)
[2017-06-01] MEDS ORDERED: VANCOMYCIN INJ 2,000 MG in SODIUM CHLORIDE 0.9% 500ML 500 ML IV SCH (15:00)
[2017-06-01 15:10] VITALS: BP 123/71; PULSE 81; TEMP 36.7; O2SAT 90
--- NOTE | 2017-06-01 15:49 | Pharmacy Progress Note ---
Pharmacy Antibiotic Consult Date of Service: Jun 01, 2017. Pharmacy Dosing Scope Pharmacy is consulted to initiate vancomycin IV dosing therapy, order appropriate labs and adjust drug dose/frequency. Subjective The patient is a 87 year old female admitted on May 31, 2017 at 15:55. Objective Height (Feet): 5 Height (Inches): 4.00 Weight (Kilograms): 81.400 Lab Results (24hrs): Test 06/01/17 05:39 06/01/17 09:30 06/01/17 11:34 White Blood Count 15.91 K/uL (4.8-10.8) Red Blood Count 3.95 M/uL (4.2-5.4) Hemoglobin 11.6 g/dL (12.0-16.0) Hematocrit 35.6 % (37-47) Mean Corpuscular Volume 90.1 fL (80-100) Mean Corpuscular Hemoglobin 29.4 pg (25-34) Mean Corpuscular Hemoglobin Concent 32.6 g/dl (32-36) RDW Standard Deviation 47.0 fL (36.4-46.3) RDW Coefficient of Variation 14.1 % (11.5-14.5) Platelet Count 143 K/uL (130-400) Mean Platelet Volume 10.3 fL (7.4-10.4) Sodium Level 139 mmol/L (136-145) Potassium Level 4.1 mmol/L (3.5-5.1) Chloride Level 107 mmol/L (98-107) Carbon Dioxide Level 21 mmol/L (21-32) Anion Gap 11.0 mmol/L (3-11) Blood Urea Nitrogen 83 mg/dl (7-18) Creatinine 2.26 mg/dl (0.60-1.20) Est Creatinine Clear Calc Drug Dose 17.8 ml/min Estimated GFR () 21.7 Estimated GFR (Non- 18.8 BUN/Creatinine Ratio 36.8 (10-20) Random Glucose 59 mg/dl (70-99) Calcium Level 7.6 mg/dl (8.5-10.1) Magnesium Level 2.3 mg/dl (1.8-2.4) Total Bilirubin 0.6 mg/dl (0.2-1) Aspartate Amino Transf (AST/SGOT) 138 U/L (15-37) Alanine Aminotransferase (ALT/SGPT) 79 U/L (12-78) Alkaline Phosphatase 296 U/L (45-117) Total Protein 6.3 gm/dl (6.4-8.2) Albumin 2.8 gm/dl (3.4-5.0) Globulin 3.5 gm/dl (2.5-4.0) Albumin/Globulin Ratio 0.8 (0.9-2) Bedside Glucose 138 mg/dl (70-90) 147 mg/dl (70-90) Assessment & Plan Assessment * 87 yo F started on ceftriaxone yesterday for UTI, being broadened today to cefepime/vancomycin for intra-abdominal / ascitic fluid infection. * SCr significantly elevated to 2.26 mg/dL today, but stable. Unknown baseline , but hx CKD III per H&P. Estimated CrCL no better than 18 mL/min Vancomycin dosing * Goal vancomycin trough 15-20 mcg/mL * Loading dose of 25 mg/kg already ordered/administered * Will not order additional scheduled vancomycin at this time 2nd significant renal dysfunction. Will instead dose via level Plan * No additional vancomycin at this time * Random level with AM labs Pharmacy will continue to follow and will adjust dose/frequency as necessary. Thank you
--- NOTE | 2017-06-01 16:15 | Progress Note ---
Internal Med Progress Note Date of Service: Jun 01, 2017. Provider Documentation: SUBJECTIVE: still feeling same weak and tired minimal ambulation making her tired denies chest pain no abdominal pain afebrile has some cough poor appetite OBJECTIVE: Vital Signs-as noted below Exam: General-alert and oriented. Not in distress ENT-Normal hearing Neck-no neck masses supple Lungs-cta b/l no wheezing no crackles Heart-S1 and S2 heard regular rate and rthym, no murmurs Abdomen-Soft bowel sounds present non tender distended Extremities-trace lower extremity edema no erythema Neuro-alert and awake moves extremities Lab data as noted below. ASSESSMENT & PLAN: 1. Urinary tract infection. was started on rocephin Patient not feeling well will boarded the abx to cefepime and iv vanco until cx comes back. 2. Acute kidney injury. Her creatinine seems to be normal before this episode,.Presented with Cr 2.1. Cr 2.2 today. On fluids abx as above will f/u renal us. 3. New diagnosis of cirrhosis, most likely secondary to fatty liver disease. ct abd/pelvis questionable left lobe lesion. will f/u liver US f/u hepatic viral panel will consider diagnostic tap 4. Hepatic lesion. May need MR or liver CT as per GI evaluation. Possibly secondary to metastatic disease, given the history of colon cancer. 5. Diabetes type 2 on insulin. On sliding scale coverage while in the hospital. 6. Hyperlipidemia. Holding her statin at this time. 7. Hypertension. On hydralazine. will monitor 8. Gastrointestinal prophylaxis with Protonix. 9. Deep venous thrombosis prophylaxis with subcutaneous heparin. 10. Code status. full code. DISPOSITION to be determined Vital Signs: Date Time Temp Pulse Resp B/P (MAP) Pulse Ox O2 Delivery O2 Flow Rate FiO2 06/01/17 15:10 36.7 81 18 123/71 (88) 90 Nasal Cannula 2.0 06/01/17 08:35 Nasal Cannula 2.0 06/01/17 08:17 36.5 87 18 106/66 (79) 91 Nasal Cannula 2.0 06/01/17 00:00 Nasal Cannula 2.0 05/31/17 23:36 36.5 50 18 102/63 (76) 96 Room Air 05/31/17 23:35 36.8 75 16 95/61 (72) 94 Nasal Cannula 2.0 05/31/17 17:09 36.5 81 18 106/67 95 Nasal Cannula 2.0 Lab Results: Results Past 24 Hours Test 05/31/17 16:58 05/31/17 19:45 06/01/17 05:39 06/01/17 08:12 Range/Units Bedside Glucose 147 146 76 70-90 mg/dl White Blood Count 15.91 4.8-10.8 K/uL Red Blood Count 3.95 4.2-5.4 M/uL Hemoglobin 11.6 12.0-16.0 g/dL Hematocrit 35.6 37-47 % Mean Corpuscular Volume 90.1 80-100 fL Mean Corpuscular Hemoglobin 29.4 25-34 pg Mean Corpuscular Hemoglobin Concent 32.6 32-36 g/dl RDW Standard Deviation 47.0 36.4-46.3 fL RDW Coefficient of Variation 14.1 11.5-14.5 % Platelet Count 143 130-400 K/uL Mean Platelet Volume 10.3 7.4-10.4 fL Sodium Level 139 136-145 mmol/L Potassium Level 4.1 3.5-5.1 mmol/L Chloride Level 107 98-107 mmol/L Carbon Dioxide Level 21 21-32 mmol/L Anion Gap 11.0 3-11 mmol/L Blood Urea Nitrogen 83 7-18 mg/dl Creatinine 2.26 0.60-1.20 mg/dl Est Creatinine Clear Calc Drug Dose 17.8 ml/min Estimated GFR () 21.7 Estimated GFR (Non- 18.8 BUN/Creatinine Ratio 36.8 10-20 Random Glucose 59 70-99 mg/dl Calcium Level 7.6 8.5-10.1 mg/dl Magnesium Level 2.3 1.8-2.4 mg/dl Total Bilirubin 0.6 0.2-1 mg/dl Aspartate Amino Transf (AST/SGOT) 138 15-37 U/L Alanine Aminotransferase (ALT/SGPT) 79 12-78 U/L Alkaline Phosphatase 296 45-117 U/L Total Protein 6.3 6.4-8.2 gm/dl Albumin 2.8 3.4-5.0 gm/dl Globulin 3.5 2.5-4.0 gm/dl Albumin/Globulin Ratio 0.8 0.9-2 Test 06/01/17 09:30 06/01/17 11:34 Range/Units Bedside Glucose 138 147 70-90 mg/dl
[2017-06-01] MEDS: CEFEPIME IV 1,000 MG in SYRINGE 0 ML IV SCH (16:50)
--- NOTE | 2017-06-01 17:08 | DIAGNOSTIC IMAGING REPORT ---
(RENAL)RETROPERITON COMP HISTORY: Renal sufficiency arf COMPARISON: None. FINDINGS: Right kidney: Maximum dimension 9.8 cm. 1.8 cm central renal cyst. No evidence for hydronephrosis. Normal corticomedullary differentiation and cortical thickness. Left kidney: Maximum dimension 10.1 cm. 1 cm upper pole cyst. No evidence for hydronephrosis. Normal corticomedullary differentiation and cortical thickness. Bladder: No bladder wall thickening. The bilateral ureteral jets were identified. IMPRESSION: Small bilateral renal cysts. No evidence for hydronephrosis. The above report was generated using voice recognition software. It may contain grammatical, syntax or spelling errors. Electronically signed by: Chano Mena M.D. 06/01/2017 5:06 PM Dictated Date/Time: 06/01/2017 5:05 PM
--- NOTE | 2017-06-01 17:16 | DIAGNOSTIC IMAGING REPORT ---
(LIVER) ABDOMEN LIMITED CLINICAL HISTORY: liver lesion? Abnormal CT scan TECHNIQUE: Ultrasound COMPARISON STUDY: CT abdomen and pelvis 05/31/2017 FINDINGS: The gallbladder is negative for gallstones. Gallbladder wall slightly thickened at 4 mm. No abnormal pericholecystic fluid. Common bile duct measures 6 mm. Intrahepatic ducts are unremarkable. Liver is heterogeneous throughout. However cortical margins are consistent with cirrhotic scarring. There is a treadmill trace amount of perihepatic ascites. Hepatic and portal venous structures are patent. There are 3 and possibly 4 small round hypodense [place]. Lesions within the right as well as left hepatic lobe. These measure no more than a 1.2 cm. Possibility of metastatic disease is a consideration. Pancreas and right kidney are unremarkable. Small cyst within the central right kidney is present. No evidence for hydronephrosis. IMPRESSION: 1. Heterogeneous liver architecture consistent with hepatic cirrhosis. 2. Trace perihepatic ascites. 3. Several right as well as left hepatic lobe hypodense nodules measuring 1.2 cm or less respectively. 4. The possibly of metastatic disease is a consideration. 5. Study is otherwise negative. The above report was generated using voice recognition software. It may contain grammatical, syntax or spelling errors. Electronically signed by: Chano Mena M.D. 06/01/2017 5:14 PM Dictated Date/Time: 06/01/2017 5:07 PM
[2017-06-01] MEDS ORDERED: CEFEPIME IV 2,000 MG in DEXTROSE 5% 100ML 100 ML IV SCH (20:00)
[2017-06-01] MEDS: CLONAZEPAM 0.5 MG TAB PO SCH (20:11)
[2017-06-01 23:15] VITALS: BP 114/69; PULSE 82; TEMP 37; O2SAT 93
[2017-06-02] MEDS: SODIUM CHLORIDE 0.9% 1000ML 1,000 ML IV SCH ×2 (00:41→07:41)
[2017-06-02] MEDS: HEPARIN SOD 5000 UNIT/0.5 ML CARP SQ SCH ×3 (05:45→21:26)
[2017-06-02 06:25] LABS: CREATININE 2.26 mg/dl (0.60-1.20)
[2017-06-02 07:20] VITALS: BP 116/72; PULSE 86; TEMP 36.3; O2SAT 94
[2017-06-02] MEDS: CITALOPRAM 20 MG TAB PO SCH (07:40)
[2017-06-02] MEDS: HydrALAZINE 10 MG TAB PO SCH ×2 (07:40→21:28)
[2017-06-02] MEDS: CLOPIDOGREL BISULFATE 75 MG TAB PO SCH (07:40)
[2017-06-02 07:50] LABS: HEMOGLOBIN A1C 6.8 % (4.5-5.6)
[2017-06-02 07:57] LABS: HEMATOCRIT 34.6 % (37-47); HEMOGLOBIN 11.1 g/dL (12.0-16.0); MEAN CELL VOLUME 89.9 fL (80-100); MEAN CORPUSCULAR HEMOGLOBIN 28.8 pg (25-34); MEAN CORPUSCULAR HGB CONC 32.1 g/dl (32-36); MEAN PLATELET VOLUME 9.2 fL (7.4-10.4); PLATELET COUNT 128 K/uL (130-400); RED CELL DISTRIBUTION WIDTH CV 14.3 % (11.5-14.5); RED CELL DISTRIBUTION WIDTH SD 47.3 fL (36.4-46.3); WHITE BLOOD COUNT 15.76 K/uL (4.8-10.8)
[2017-06-02 08:23] LABS: BASO % 0.3 %; BASO ABS # 0.04 K/uL (0-0.2); EOS ABS # 0.31 K/uL (0-0.5); IG# 0.14 K/uL (0.00-0.02); LYMPH % 12.6 %; LYMPH ABS # 1.99 K/uL (1.2-3.4); MONO % 11.2 %; MONO ABS # 1.77 K/uL (0.11-0.59); NEUT ABS # 11.51 K/uL (1.4-6.5)
[2017-06-02 08:27] LABS: CALCIUM 7.5 mg/dl (8.5-10.1); CREATININE 2.26 mg/dl (0.60-1.20); POTASSIUM 4.3 mmol/L (3.5-5.1)
[2017-06-02] MEDS: INSULIN ASPART 100 UNITS/ML 3 ML PEN SC SCH ×4 (08:52→21:00)
--- NOTE | 2017-06-02 09:21 | Gastroenterology Progress Note ---
Progress Note Date of Service: Jun 02, 2017 Subjective Pt evaluation today including: conversation w/ patient, physical exam, chart review, lab review, review of studies, review of inpatient medication list Feels tired and rin down. No abdominal pain, nausea or vomiting. liver US done last evening showed multiple approx 1cm liver lesions and findings of cirrhosis. Creatinine remains elevated around 2 - baseline not known. Review of Systems 12 systems reviewed and negative except as noted Medications Current Inpatient Medications Medications (Trade) Dose Ordered Sig/Paolo Route Start Time Stop Time Status Last Admin Dose Admin Heparin Sodium (Porcine) (Heparin Sq 5000 Unit/0.5ml) 5,000 unit Q8 SQ 05/31/17 22:00 06/30/17 21:59 06/02/17 05:45 5,000 UNIT Ondansetron HCl (Zofran Inj) 4 mg Q6H PRN IV 05/31/17 16:00 06/30/17 15:59 Citalopram Hydrobromide (celeXA TAB) 10 mg DAILY PO 06/01/17 08:00 07/01/17 08:59 06/02/17 07:40 10 MG Clonazepam (Klonopin Tab) 1 mg HS PO 05/31/17 21:00 06/30/17 20:59 06/01/17 20:11 1 MG Clopidogrel Bisulfate (plAVix TAB) 75 mg DAILY PO 06/01/17 08:00 07/01/17 08:59 06/02/17 07:40 75 MG Hydralazine HCl (Apresoline Tab) 10 mg BID PO 05/31/17 20:00 06/30/17 20:59 06/02/17 07:40 10 MG Insulin Aspart (novoLOG ASPART) SLIDING SCALE G... ACHS SC 05/31/17 21:00 06/30/17 20:59 06/01/17 20:18 1 UNITS Glucose (Glucose 40% Gel) 15-30 GRAMS 15 GRAMS... UD PRN PO 05/31/17 16:15 06/30/17 16:14 Glucose (Glucose Chew Tab) 4-8 Tablets 4 Tabl... UD PRN PO 05/31/17 16:15 06/30/17 16:14 Dextrose (Dextrose 50% 50ML Syringe) 25-50ML OF 50% DW IV FOR... UD PRN IV 05/31/17 16:15 06/30/17 16:14 Glucagon (Glucagon Inj) 1 mg UD PRN SQ 05/31/17 16:15 06/30/17 16:14 Sodium Chloride 1,000 ml @ 100 mls/hr Q10H IV 05/31/17 17:00 06/30/17 16:59 06/02/17 07:41 100 MLS/HR Promethazine HCl 12.5 mg/Sodium Chloride 50.5 ml @ 204 mls/hr Q6H PRN IV 05/31/17 17:30 06/30/17 17:29 Vancomycin HCl (Consult) 1 ea UD PRN N/A 06/01/17 14:45 07/01/17 14:44 Cefepime HCl (Consult) 1 ea UD PRN N/A 06/01/17 14:45 07/01/17 14:44 Cefepime HCl 1000 mg/Syringe 11 ml @ 5.5 mls/min DAILY@1600 IV 06/01/17 16:00 06/11/17 15:59 06/01/17 16:50 5.5 MLS/MIN Objective Vital Signs Date Time Temp Pulse Resp B/P (MAP) Pulse Ox O2 Delivery O2 Flow Rate FiO2 06/02/17 07:55 Room Air 06/02/17 07:20 36.3 86 18 116/72 (87) 94 06/02/17 00:00 Nasal Cannula 2.0 06/01/17 23:15 37.0 82 20 114/69 (84) 93 Nasal Cannula 2.0 06/01/17 16:00 Nasal Cannula 2.0 06/01/17 15:10 36.7 81 18 123/71 (88) 90 Nasal Cannula 2.0 Physical Exam General Appearance: WD/WN, no apparent distress Eyes: normal inspection, PERRL ENT: normal ENT inspection, hearing grossly normal, pharynx normal Neck: supple, no adenopathy, no JVD Respiratory/Chest: chest non-tender, lungs clear, no accessory muscle use Cardiovascular: regular rate, rhythm, no murmur Abdomen: normal bowel sounds, non tender, soft, + pertinent finding (obese) Extremities: normal range of motion, non-tender, normal inspection Neurologic/Psych: buying agent II-XII nml as tested, no motor/sensory deficits, alert, normal mood/affect, oriented x 3 Skin: normal color, no jaundice, no rash Laboratory Results Last 24 Hours Test 06/01/17 09:30 06/01/17 11:34 06/01/17 16:45 06/01/17 20:17 Bedside Glucose 138 mg/dl 147 mg/dl 215 mg/dl 146 mg/dl Test 06/02/17 05:18 06/02/17 07:28 06/02/17 07:48 Creatinine 2.26 mg/dl 2.26 mg/dl Est Creatinine Clear Calc Drug Dose 17.8 ml/min 17.8 ml/min Estimated GFR () 21.7 21.7 Estimated GFR (Non- 18.8 18.8 Random Vancomycin Level 21.8 mcg/ml Bedside Glucose 92 mg/dl White Blood Count 15.76 K/uL Red Blood Count 3.85 M/uL Hemoglobin 11.1 g/dL Hematocrit 34.6 % Mean Corpuscular Volume 89.9 fL Mean Corpuscular Hemoglobin 28.8 pg Mean Corpuscular Hemoglobin Concent 32.1 g/dl Platelet Count 128 K/uL Mean Platelet Volume 9.2 fL Neutrophils (%) (Auto) 73.0 % Lymphocytes (%) (Auto) 12.6 % Monocytes (%) (Auto) 11.2 % Eosinophils (%) (Auto) 2.0 % Basophils (%) (Auto) 0.3 % Neutrophils # (Auto) 11.51 K/uL Lymphocytes # (Auto) 1.99 K/uL Monocytes # (Auto) 1.77 K/uL Eosinophils # (Auto) 0.31 K/uL Basophils # (Auto) 0.04 K/uL RDW Standard Deviation 47.3 fL RDW Coefficient of Variation 14.3 % Immature Granulocyte % (Auto) 0.9 % Immature Granulocyte # (Auto) 0.14 K/uL Toxic Vacuolation 1+ Echinocytes 1+ Sodium Level 137 mmol/L Potassium Level 4.3 mmol/L Chloride Level 107 mmol/L Carbon Dioxide Level 18 mmol/L Anion Gap 12.0 mmol/L Blood Urea Nitrogen 84 mg/dl BUN/Creatinine Ratio 37.3 Random Glucose 102 mg/dl Calcium Level 7.5 mg/dl Assessment and Plan 87 year old female with multiple medical problems including long standing diabetes admitted with generalized weakness and fatigue found to have a UTI. Non-contrast CT showed nodular cirrhotic appearing liver and a ?lesion in the left lobe of the liver. US showed multiple approx 1cm hepatic lesions and changes of cirrhosis. There is only a TRACE amount of ascites. Labs consistent with cirrhosis. With a history of colon cancer a metastatic lesion is a possibility vs primary liver lesion vs benign process. She will need outpatient follow up after discharge. - Management of acute kidney injury and UTI per primary service. - Please repeat LFTs today. - Will need 4phase contrast CT or the liver or liver MRI once her renal function improves to further characterize the liver lesions. - Not likely enough ascitic fluid for diagnostic sampling. - Will need outpatient follow up after discharge regarding the new dx of cirrhosis.
--- NOTE | 2017-06-02 11:25 | NEPHROLOGY CONSULTATION ---
DATE OF CONSULTATION: 06/02/2017 ATTENDING OF RECORD: Dr. Stone. REASON FOR CONSULTATION: ELYSE. HISTORY OF PRESENT ILLNESS: This is an 87-year-old female who follows with my partner, Dr. Monik Barker for CKD stage G3b-a2 with less than 100 mg of microalbuminuria secondary to advanced age and hypertension. The patient also with history of diabetes, does have a history of a TIA on Plavix, history of melanoma as well as sigmoid colon cancer in 2005, no NSAIDs, no tobacco use. The patient with a creatinine of 1.3 with a goal blood pressure of under 150/90, Norvasc 10 mg a day, atenolol 25 mg a day, hydralazine 10 mg twice a day, Losartan 50 mg a day, hydrochlorothiazide 12.5 mg a day as an outpatient who over the past month has had a decreased appetite, worsening abdominal distention, fatigue, very sleepy. The patient comes in with a creatinine of 2.18 and has trended up to 2.26. The patient is currently on antibiotics for presumed urinary tract infection. Blood cultures are negative. Abdominal CT scan shows findings consistent with cirrhosis as well as findings suspicious for a mass within the liver. Liver ultrasound shows findings suggestive of possibly a metastatic disease. Renal ultrasound was done shows right kidney 9.8 cm and left kidney 10.1 cm. No evidence for hydronephrosis. GI was consulted and shows only a trace amount of ascites. Labs consistent with cirrhosis with history of colon cancer, metastatic lesion is a possibility versus primary liver lesion versus a benign process. She will need a followup after discharge with GI to continue workup who eventually need a [address] of the liver or a liver MRI once her renal function improves to further characterize the liver lesions and unfortunately not enough ascitic fluid for diagnostic sampling who need outpatient workup for the new diagnosis of cirrhosis. Hepatitis panel is pending. The patient does have elevated white count of 15,000, hemoglobin level of 11, platelet count of 128. INR is mildly elevated at 1.4. Albumin is low at 2.8, AST is elevated at 138, ALT is 79, alkaline phosphatase 296, albumin 2.8, T-bili is normal at 0.6. REVIEW OF SYSTEMS: No fevers or chills, no dysuria, no odor to the urine, did have an episode of nausea and vomiting at home, but none since she has been here. No diarrhea or constipation. Positive generalized weakness. Positive decreased appetite. No chest pain, no shortness of breath. No rash, no dysphagia. All other review of systems otherwise negative. CURRENT MEDICATIONS: Cefepime 1 gram IV daily, vancomycin p.r.n., Celexa 10 mg daily, Plavix 75 mg daily, heparin 5000 units subQ q. 8, hydralazine 10 mg p.o. b.i.d. normal saline at 100 mL an hour. PAST MEDICAL HISTORY: CKD stage III with baseline creatinine of 1.2-1.3, follows with Dr. Monik Barker; type 2 diabetes, hypertension, history of TIA on Plavix, history of malignant melanoma of the skin, history of colon cancer, hyperlipidemia, and anxiety. PAST SURGICAL HISTORY: Partial colectomy in 2005, hysterectomy in 1998. FAMILY HISTORY: No renal disease in family. SOCIAL HISTORY: , lives with . No smoking, no alcohol, no drugs. PHYSICAL EXAMINATION: VITAL SIGNS: Temperature 36.3, pulse 86, respiratory rate 18, blood pressure 116/72. Satting 94% on room air. GENERAL: Awake, alert, oriented x3. EYES: No scleral icterus. ENT: Moist mucous membranes. NECK: Supple. PULMONARY: Clear to auscultation. CARDIAC: Regular rate and rhythm. ABDOMEN: Distended; however, no significant ascites noted on imaging. Soft, bowel sounds positive. EXTREMITIES: +1 edema. NEUROLOGICALLY: Nonfocal. DERM: No rash or ulcers noted. LABORATORY DATA: White count is 15, H&H 11 and 34, platelet count is 128. Sodium is 137, potassium 4.3, chloride is 107, bicarb is 18, BUN is 84, creatinine is 2.26, glucose 102. Calcium 7.5, ammonia level is normal at 26, albumin last checked was 2.8. TSH level is normal at 2.2. IMAGING DATA: Renal ultrasound with right kidney 9.8 cm and left kidney 10.1 cm. No evidence for hydro, normal corticomedullary differentiation and cortical thickness. IMPRESSION AND PLAN: 1. Acute kidney injury on chronic kidney disease stage III in the setting of fatigue, findings of cirrhosis on imaging with questionable concern of possible liver lesions, suggestive of a possible primary versus metastatic disease versus benign process. Agree with IV fluids and continued treatment for the presumed urinary tract infection. Would like to check a random urine sodium to further assess perfusion to the kidneys and does have some liver enzyme abnormalities, one possibility is hepatorenal syndrome. Albumin levels are trending down, could add albumin to her treatment in addition to the fluids. Monitoring for signs of volume overload. Blood pressures are still very well controlled despite the IV fluids and will monitor for signs of volume overload and continue the current blood pressure medicines. Unclear cause to the acute kidney injury with no NSAIDs, no contrast; however, with the new liver findings, question if this is somehow related to her liver disease. Hydrate for now, check random urine sodium and add low dose albumin to help improve intravascular volume while carefully monitoring for signs of volume overload in this 87-year-old pleasant female with a loving . Appreciate consultation. YOAV
[2017-06-02] MEDS: ALBUMIN HUMAN 25% 12.5 GM/50 ML VIAL IV SCH ×2 (12:09→20:18)
[2017-06-02 16:00] VITALS: O2SAT 95
[2017-06-02 16:08] VITALS: BP 135/73; PULSE 90; TEMP 36.4; O2SAT 92
[2017-06-02] MEDS: CEFEPIME IV 1,000 MG in SYRINGE 0 ML IV SCH (16:55)
--- NOTE | 2017-06-02 18:07 | Progress Note ---
Internal Med Progress Note Date of Service: Jun 02, 2017. Provider Documentation: SUBJECTIVE: still feeling weak poor appetite no abdominal pain no nausea no sob OBJECTIVE: Vital Signs-as noted below Exam: General-alert and oriented. Not in distress ENT-Normal hearing Neck-no neck masses supple Lungs-cta b/l no wheezing no crackles Heart-S1 and S2 heard regular rate and rthym, no murmurs Abdomen-Soft bowel sounds present non tender distended Extremities-trace lower extremity edema no erythema Neuro-alert and awake moves extremities Lab data as noted below. ASSESSMENT & PLAN: 1. Urinary tract infection. was started on rocephin Patient not feeling well will boarded the abx to cefepime and iv vanco until cx comes back. cx no growth so far will stop vanco 2. Acute kidney injury. Her creatinine seems to be normal before this episode,.Presented with Cr 2.1. Cr 2.2 today. On fluids abx as above renal us unremarkable consulted nephrology 3. New diagnosis of cirrhosis, most likely secondary to fatty liver disease. ct abd/pelvis questionable left lobe lesion. will f/u liver US f/u hepatic viral panel GI plans for out patient followup 4. Hepatic lesion. May need MR or liver CT as per GI evaluation. Possibly secondary to metastatic disease, given the history of colon cancer. 5. Diabetes type 2 on insulin. On sliding scale coverage while in the hospital. 6. Hyperlipidemia. Holding her statin at this time. 7. Hypertension. On hydralazine. will monitor 8. Gastrointestinal prophylaxis with Protonix. 9. Deep venous thrombosis prophylaxis with subcutaneous heparin. 10. Code status. full code. DISPOSITION to be determined Vital Signs: Date Time Temp Pulse Resp B/P (MAP) Pulse Ox O2 Delivery O2 Flow Rate FiO2 06/02/17 16:08 36.4 90 18 135/73 (93) 92 Nasal Cannula 2.0 06/02/17 07:55 Room Air 06/02/17 07:20 36.3 86 18 116/72 (87) 94 06/02/17 00:00 Nasal Cannula 2.0 06/01/17 23:15 37.0 82 20 114/69 (84) 93 Nasal Cannula 2.0 Lab Results: Results Past 24 Hours Test 06/01/17 20:17 06/02/17 00:00 06/02/17 05:18 06/02/17 07:28 Range/Units Bedside Glucose 146 92 70-90 mg/dl Urine Random Sodium 13 mEq/L Creatinine 2.26 0.60-1.20 mg/dl Est Creatinine Clear Calc Drug Dose 17.8 ml/min Estimated GFR () 21.7 Estimated GFR (Non- 18.8 Random Vancomycin Level 21.8 mcg/ml Test 06/02/17 07:48 06/02/17 11:40 06/02/17 16:38 Range/Units White Blood Count 15.76 4.8-10.8 K/uL Red Blood Count 3.85 4.2-5.4 M/uL Hemoglobin 11.1 12.0-16.0 g/dL Hematocrit 34.6 37-47 % Mean Corpuscular Volume 89.9 80-100 fL Mean Corpuscular Hemoglobin 28.8 25-34 pg Mean Corpuscular Hemoglobin Concent 32.1 32-36 g/dl Platelet Count 128 130-400 K/uL Mean Platelet Volume 9.2 7.4-10.4 fL Neutrophils (%) (Auto) 73.0 % Lymphocytes (%) (Auto) 12.6 % Monocytes (%) (Auto) 11.2 % Eosinophils (%) (Auto) 2.0 % Basophils (%) (Auto) 0.3 % Neutrophils # (Auto) 11.51 1.4-6.5 K/uL Lymphocytes # (Auto) 1.99 1.2-3.4 K/uL Monocytes # (Auto) 1.77 0.11-0.59 K/uL Eosinophils # (Auto) 0.31 0-0.5 K/uL Basophils # (Auto) 0.04 0-0.2 K/uL RDW Standard Deviation 47.3 36.4-46.3 fL RDW Coefficient of Variation 14.3 11.5-14.5 % Immature Granulocyte % (Auto) 0.9 % Immature Granulocyte # (Auto) 0.14 0.00-0.02 K/uL Toxic Vacuolation 1+ Echinocytes 1+ Sodium Level 137 136-145 mmol/L Potassium Level 4.3 3.5-5.1 mmol/L Chloride Level 107 98-107 mmol/L Carbon Dioxide Level 18 21-32 mmol/L Anion Gap 12.0 3-11 mmol/L Blood Urea Nitrogen 84 7-18 mg/dl Creatinine 2.26 0.60-1.20 mg/dl Est Creatinine Clear Calc Drug Dose 17.8 ml/min Estimated GFR () 21.7 Estimated GFR (Non- 18.8 BUN/Creatinine Ratio 37.3 10-20 Random Glucose 102 70-99 mg/dl Calcium Level 7.5 8.5-10.1 mg/dl Bedside Glucose 219 171 70-90 mg/dl Microbiology Results 06/01/17 Urine Culture - Preliminary, Resulted NO GROWTH - LESS THAN 1,000 COLONIES/...
[2017-06-02] MEDS ORDERED: VANCOMYCIN INJ 1,250 MG in SODIUM CHLORIDE 0.9% 250ML 250 ML IV ONE (20:00)
[2017-06-02 20:34] VITALS: BP 117/72; PULSE 95; TEMP 37; O2SAT 92
[2017-06-02] MEDS: CLONAZEPAM 0.5 MG TAB PO SCH (21:27)
[2017-06-02 23:31] VITALS: BP 151/77; PULSE 105; TEMP 36.7; O2SAT 92
[2017-06-03] MEDS: SODIUM CHLORIDE 0.9% 1000ML 1,000 ML IV SCH ×2 (02:25→12:15)
[2017-06-03] MEDS: HEPARIN SOD 5000 UNIT/0.5 ML CARP SQ SCH ×3 (06:10→21:24)
[2017-06-03] MEDS: INSULIN ASPART 100 UNITS/ML 3 ML PEN SC SCH ×4 (06:30→21:23)
[2017-06-03 06:36] LABS: HEMATOCRIT 31.5 % (37-47); HEMOGLOBIN 10.4 g/dL (12.0-16.0); MEAN CELL VOLUME 89.7 fL (80-100); MEAN CORPUSCULAR HEMOGLOBIN 29.6 pg (25-34); RED CELL DISTRIBUTION WIDTH CV 14.5 % (11.5-14.5); RED CELL DISTRIBUTION WIDTH SD 47.2 fL (36.4-46.3)
[2017-06-03 07:02] LABS: MEAN PLATELET VOLUME 9.6 fL (7.4-10.4); PLATELET COUNT 96 K/uL (130-400)
[2017-06-03 07:06] LABS: BASO % 0.2 %; BASO ABS # 0.02 K/uL (0-0.2); EOS % 0.9 %; IG# 0.16 K/uL (0.00-0.02); LYMPH % 8.1 %; LYMPH ABS # 0.95 K/uL (1.2-3.4); MONO % 10.6 %; MONO ABS # 1.24 K/uL (0.11-0.59); NEUT % 78.8 %; NEUT ABS # 9.23 K/uL (1.4-6.5)
[2017-06-03 07:11] LABS: CALCIUM 7.8 mg/dl (8.5-10.1); CREATININE 1.74 mg/dl (0.60-1.20)
[2017-06-03 07:12] LABS: URIC ACID 11.4 mg/dl (2.6-7.2)
[2017-06-03] MEDS ORDERED: NURSING VERBAL MED ORDER ONE (07:15)
[2017-06-03] MEDS ORDERED: MICONAZOLE NITRATE POWDER 43 GM ONE (07:18)
[2017-06-03 07:27] VITALS: BP 138/77; PULSE 111; TEMP 36.3; O2SAT 94
[2017-06-03] MEDS ORDERED: MICONAZOLE NITRATE POWDER 43 GM EXT PRN (07:45)
[2017-06-03] MEDS: HydrALAZINE 10 MG TAB PO SCH ×2 (07:52→21:21)
[2017-06-03] MEDS: CITALOPRAM 20 MG TAB PO SCH (07:52)
[2017-06-03] MEDS: CLOPIDOGREL BISULFATE 75 MG TAB PO SCH (07:52)
[2017-06-03] MEDS: ALBUMIN HUMAN 25% 12.5 GM/50 ML VIAL IV SCH (08:02)
[2017-06-03 09:02] VITALS: BP 161/78; PULSE 113; O2SAT 93
[2017-06-03 10:55] LABS: INFLUENZA A PCR Neg for Influ A (NEG); INFLUENZA B PCR Neg for Influ B (NEG)
--- NOTE | 2017-06-03 13:37 | DIAGNOSTIC IMAGING REPORT ---
CHEST ONE VIEW PORTABLE CLINICAL HISTORY: 87 years-old Female presenting with congestion/infiltrate. TECHNIQUE: Portable upright AP view of the chest was obtained. COMPARISON: 05/31/2017. FINDINGS: Atherosclerosis of aortic arch. Cardiac silhouette enlarged. Pulmonary vascular prominence increased from prior. Increased right basilar opacity. Increased right pleural effusion. Minimal left basilar opacity ossicle trace left pleural effusion. No pneumothorax. Osseous structures normal. Upper abdomen normal. IMPRESSION: 1. Cardiomegaly with interval development of right greater than left bibasilar opacities and right greater than left pleural effusions. This suggests an element of congestive change/mild pulmonary edema. 2. Underlying right basilar consolidation/infection cannot be excluded. Electronically signed by: Dmitry Simon M.D. 06/03/2017 1:35 PM Dictated Date/Time: 06/03/2017 1:33 PM
--- NOTE | 2017-06-03 13:38 | PROGRESS NOTE ---
DATE: 06/03/2017 DATE: 06/03/2017 SUBJECTIVE: No new symptoms. Overnight she still has a poor appetite and feels nauseated, complaining of abdominal distention. She is starting to have some lower extremity edema also. PHYSICAL EXAMINATION: VITAL SIGNS: Blood pressure is starting to get higher. 93% on 2 liter nasal cannula, pulse rate 113 per minute. HEAD, EYES, EARS, NOSE, AND THROAT: Mucous membrane is moist. NECK: Supple. CHEST: Bilateral clear to auscultation. CARDIOVASCULAR: Regular rate and rhythm. ABDOMEN: Distended, soft, nontender. EXTREMITIES: Shows 2+ edema. LABORATORY TESTS: Reviewed in detail. Urinalysis shows very active urine sediment consistent with a urinary tract infection. Urine sodium low at 13. WBC count 11.72, hemoglobin 10.4, platelet count 96,000. Urine and blood culture actually is negative so far. Renal panel from this morning shows slight improvement with sodium 139, potassium 402, BUN 75, creatinine 1.74. Creatinine was 2.26 for the last 2 days. Uric acid 11.4. ASSESSMENT AND PLAN: 1. Acute renal failure on background CKD stage III. Today's labs does show some improvement but slightly better BUN and creatinine, but it looks like she is more fluid overloaded than usual and at this point I think we need to stop the fluid. 2. Liver cirrhosis. This is as per the primary service. at a creatinine of 1.7, the risk of contrast is extremely low; however, there is no urgency in doing this contrast study So I thinkwe should probably wait for the renal function to at least stabilize better MTDD
[2017-06-03] MEDS ORDERED: LEVOFLOXACIN CONSULT ACTIVE PRN (13:45)
[2017-06-03] MEDS ORDERED: LEVOFLOXACIN 500 MG TAB PO ONE (14:00)
[2017-06-03 16:00] VITALS: BP 157/68; PULSE 108; TEMP 36.6; O2SAT 97
--- NOTE | 2017-06-03 16:16 | Progress Note ---
Internal Med Progress Note Date of Service: Jun 03, 2017. Provider Documentation: SUBJECTIVE: still feeling weak and tired not much appetite denies abdominal pain denies chest pain or sob has some cough and attributes it to post nasal drainage OBJECTIVE: Vital Signs-as noted below Exam: General-alert and oriented. Not in distress ENT-Normal hearing Neck-no neck masses supple Lungs-cta b/l no wheezing no crackles Heart-S1 and S2 heard regular rate and rthym, no murmurs Abdomen-Soft bowel sounds present non tender distended Extremities-trace lower extremity edema no erythema Neuro-alert and awake moves extremities Lab data as noted below. ASSESSMENT & PLAN: 1. Urinary tract infection. was started on rocephin Patient not feeling well will boarded the abx to cefepime and iv vanco until cx comes back. cx no growth so far abx changed to po Levaquin 2. Acute kidney injury. Her creatinine seems to be normal before this episode,.Presented with Cr 2.1. Cr 2.2 today. On fluids abx as above renal us unremarkable cr 1.7 today consulted nephrology stopped fluids today f/u labs 3.Possible Pneumonia abx changed to Levaquin will f/u ct chest. 4. Pericardial effusion on ct scan will f/u echo 5. New diagnosis of cirrhosis, most likely secondary to fatty liver disease. ct abd/pelvis questionable left lobe lesion. liver US- same f/u hepatic viral panel GI plans for out patient followup 6. Hepatic lesion. May need MR or liver CT as per GI evaluation. Possibly secondary to metastatic disease, given the history of colon cancer. cannot give contrast secondary to ELYSE. Needs f/u with GI 7. Diabetes type 2 on insulin. On sliding scale coverage while in the hospital. 8. Hyperlipidemia. Holding her statin at this time. 9. Hypertension. On hydralazine. will monitor 10. Gastrointestinal prophylaxis with Protonix. 11. Deep venous thrombosis prophylaxis with subcutaneous heparin. 12. Code status. full code. DISPOSITION to be determined Vital Signs: Date Time Temp Pulse Resp B/P (MAP) Pulse Ox O2 Delivery O2 Flow Rate FiO2 06/03/17 09:02 113 161/78 (105) 93 Nasal Cannula 2.0 06/03/17 08:00 Nasal Cannula 2.0 06/03/17 07:27 36.3 111 20 138/77 (97) 94 Room Air 06/03/17 00:00 Nasal Cannula 2.0 06/02/17 23:31 36.7 105 18 151/77 (101) 92 Nasal Cannula 2.0 06/02/17 20:34 37.0 95 20 117/72 (87) 92 Room Air Lab Results: Results Past 24 Hours Test 06/02/17 16:38 06/02/17 19:56 06/03/17 06:08 06/03/17 07:33 Range/Units Bedside Glucose 171 138 139 70-90 mg/dl White Blood Count 11.70 4.8-10.8 K/uL Red Blood Count 3.51 4.2-5.4 M/uL Hemoglobin 10.4 12.0-16.0 g/dL Hematocrit 31.5 37-47 % Mean Corpuscular Volume 89.7 80-100 fL Mean Corpuscular Hemoglobin 29.6 25-34 pg Mean Corpuscular Hemoglobin Concent 33.0 32-36 g/dl Platelet Count 96 130-400 K/uL Mean Platelet Volume 9.6 7.4-10.4 fL Neutrophils (%) (Auto) 78.8 % Lymphocytes (%) (Auto) 8.1 % Monocytes (%) (Auto) 10.6 % Eosinophils (%) (Auto) 0.9 % Basophils (%) (Auto) 0.2 % Neutrophils # (Auto) 9.23 1.4-6.5 K/uL Lymphocytes # (Auto) 0.95 1.2-3.4 K/uL Monocytes # (Auto) 1.24 0.11-0.59 K/uL Eosinophils # (Auto) 0.10 0-0.5 K/uL Basophils # (Auto) 0.02 0-0.2 K/uL RDW Standard Deviation 47.2 36.4-46.3 fL RDW Coefficient of Variation 14.5 11.5-14.5 % Immature Granulocyte % (Auto) 1.4 % Immature Granulocyte # (Auto) 0.16 0.00-0.02 K/uL Platelet Estimate DECREASED Red Blood Cell Morphology Unremarkable Sodium Level 139 136-145 mmol/L Potassium Level 4.0 3.5-5.1 mmol/L Chloride Level 110 98-107 mmol/L Carbon Dioxide Level 17 21-32 mmol/L Anion Gap 12.0 3-11 mmol/L Blood Urea Nitrogen 75 7-18 mg/dl Creatinine 1.74 0.60-1.20 mg/dl Est Creatinine Clear Calc Drug Dose 23.1 ml/min Estimated GFR () 29.8 Estimated GFR (Non- 25.7 BUN/Creatinine Ratio 43.2 10-20 Random Glucose 133 70-99 mg/dl Uric Acid 11.4 2.6-7.2 mg/dl Calcium Level 7.8 8.5-10.1 mg/dl Magnesium Level 2.0 1.8-2.4 mg/dl Test 06/03/17 09:23 06/03/17 11:13 Range/Units Influenza Type A (RT-PCR) Neg for Influ A NEG Influenza Type B (RT-PCR) Neg for Influ B NEG Bedside Glucose 197 70-90 mg/dl
--- NOTE | 2017-06-03 16:23 | DIAGNOSTIC IMAGING REPORT ---
(CHEST) THORAX WITHOUT CT DOSE: 356.57 mGy.cm HISTORY: Chest pain pneumonia? TECHNIQUE: Multiaxial CT images of the chest were performed without contrast. A dose lowering technique was utilized adhering to the principles of ALARA. COMPARISON: None. FINDINGS: Moderate cardiomegaly. Small right pleural effusion. Right basilar consolidative change. Trace pleural fluid left base. Limited evaluation the upper abdomen suggest hepatic inhomogeneity as well as a trace amount of perihepatic fluid. Possibility of hepatic metastatic disease is not excluded. Small amount of upper abdominal ascites. Moderate body wall anasarca. IMPRESSION: 1. Moderate right basilar consolidative change.. 2. Right and to lesser extent left pleural effusion. 3. Moderate cardiomegaly. 4. Mild body wall anasarca. 6. Heterogeneous liver architecture raising the possibility of metastatic disease. 7. Upper abdominal ascites. The above report was generated using voice recognition software. It may contain grammatical, syntax or spelling errors. Electronically signed by: Chano Mena M.D. 06/03/2017 4:22 PM Dictated Date/Time: 06/03/2017 4:17 PM
--- NOTE | 2017-06-03 16:56 | ECHOCARDIOGRAM REPORT ---
*NOTICE TO RECEIVING [employer] [employer] [facility] This information is strictly Confidential and protected under [place] law. [place] law prohibits you from making any further disclosure of this information unless further disclosure is expressly permitted by the written consent of the person to whom it pertains or is authorized by law. A general authorization for the release of medical or other information is not sufficient for this purpose. Hospital accepts no responsibility if the information is made available to any other person, INCLUDING THE PATIENT. Interpretation Summary * Name: LATA GREGORY Study Date: 06/03/2017 03:10 PM BP: 161/78 mmHg * Patient Location: .4E\S\E405\S\1 HR: 113 * : 1930 (M/d/yyyy) Gender: Female Height: 64 in * Age: 87 yrs Ethnicity: CA Weight: 179 lb * Ordering Physician: Daniel Stone * Referring Physician: Avis Morgan D.O. * Performed By: Tameka oSmmer RDCS * * Reason For Study: Pericardial Effusion * BSA: 1.9 m2 * The study was technically adequate. * -- Conclusions -- * Sinus tachycardia was present during the echocardiogram. * There is a small circumferential pericardial effusion. * There are no echocardiographic indications of cardiac tamponade. * There is moderate concentric left ventricular hypertrophy. * No regional wall motion abnormalities noted. * The left ventricle is hyperdynamic. * The LV Ejection Fraction = >70 %. * The right ventricle is hyperdynamic. * There is no significant valvular stenosis or regurgitation. Procedure Details * A complete two-dimensional transthoracic echocardiogram was performed (2D, M-mode, Doppler and color flow Doppler). Left Ventricle * The left ventricle is normal in size. * There is moderate concentric left ventricular hypertrophy. * The left ventricle is hyperdynamic. * Ejection Fraction = >70 %. * The left ventricular wall motion is normal. * No regional wall motion abnormalities noted. Right Ventricle * The right ventricle is normal size. * The right ventricle is hyperdynamic. Atria * The left atrial size is normal. * Right atrial size is normal. * There is no evidence of atrial septal defect, but resolution does not allow assessment for a patent foramen ovale. Mitral Valve * The anterior mitral valve leaflet is mildly calcified. * There is no mitral valve stenosis. * Significant mitral regurgitation is absent. Tricuspid Valve * The tricuspid valve is normal. * There is no tricuspid stenosis. * Significant tricuspid regurgitation is absent. Aortic Valve * The aortic valve is trileaflet. * Aortic stenosis is absent. * There is no significant aortic regurgitation. Pulmonic Valve * The pulmonary valve is not well seen, but the Doppler examination is normal without significant regurgitation or stenosis. Great Vessels * The aortic root and proximal ascending aorta are normal sized. Pericardium/Pleural * There is a small circumferential pericardial effusion. * There are no echocardiographic indications of cardiac tamponade. Great Vessels * Normal inferior vena cava diameter and respiratory variation suggests normal central venous pressure. Left Ventricular Diastolic Function * Grade I diastolic dysfunction, (abnormal relaxation pattern). MMode 2D Measurements and Calculations IVSd 0.92 cm IVSs 1.6 cm LVIDd 3.6 cm LVIDs 2.2 cm LVPWd 0.96 cm LVPWs 1.6 cm IVS/LVPW 0.96 FS 38.2 % EDV(Teich) 53.6 ml ESV(Teich) 16.4 ml EF(Teich) 69.4 % EDV(cubed) 45.7 ml ESV(cubed) 10.8 ml EF(cubed) 76.4 % % IVS thick 79.1 % % LVPW thick 66.2 % LV mass(C)d 97.4 grams LV mass(C)dI 52.2 grams/m\S\2 LV mass(C)s 125.9 grams LV mass(C)sI 67.5 grams/m\S\2 SV(Teich) 37.2 ml SI(Teich) 19.9 ml/m\S\2 SV(cubed) 35.0 ml SI(cubed) 18.7 ml/m\S\2 Ao root diam 3.5 cm Ao root area 9.4 cm\S\2 ACS 1.4 cm LA dimension 1.9 cm LA/Ao 0.56 LVAd ap4 21.2 cm\S\2 LVLd ap4 7.2 cm EDV(MOD-sp4) 54.4 ml EDV(sp4-el) 53.3 ml LVAs ap4 10.0 cm\S\2 LVLs ap4 6.1 cm ESV(MOD-sp4) 14.1 ml ESV(sp4-el) 13.8 ml EF(MOD-sp4) 74.0 % EF(sp4-el) 74.2 % LVAd ap2 18.1 cm\S\2 LVLd ap2 6.8 cm EDV(MOD-sp2) 43.6 ml EDV(sp2-el) 41.0 ml LVAs ap2 9.9 cm\S\2 LVLs ap2 5.7 cm ESV(MOD-sp2) 16.1 ml ESV(sp2-el) 14.6 ml EF(MOD-sp2) 63.0 % EF(sp2-el) 64.5 % LVLd %diff -6.19 % EDV(MOD-bp) 49.5 ml LVLs %diff -6.55 % ESV(MOD-bp) 15.2 ml EF(MOD-bp) 69.2 % SV(MOD-sp4) 40.2 ml SI(MOD-sp4) 21.6 ml/m\S\2 SV(MOD-sp2) 27.4 ml SI(MOD-sp2) 14.7 ml/m\S\2 SV(MOD-bp) 34.3 ml SI(MOD-bp) 18.4 ml/m\S\2 SV(sp4-el) 39.5 ml SI(sp4-el) 21.2 ml/m\S\2 SV(sp2-el) 26.5 ml SI(sp2-el) 14.2 ml/m\S\2 Doppler Measurements and Calculations MV E max latoya 76.0 cm/sec MV A max latoya 129.4 cm/sec MV E/A 0.59 MV dec time 0.20 sec Ao V2 max 176.6 cm/sec Ao max PG 12.5 mmHg Ao max PG (full) 6.7 mmHg LV V1 max PG 5.8 mmHg LV V1 max 120.2 cm/sec PA V2 max 122.5 cm/sec PA max PG 6.0 mmHg TR max latoya 259.6 cm/sec
[2017-06-03] MEDS ORDERED: LACTULOSE SYRUP 30 GM/45 ML UDP PO ONE (17:00)
[2017-06-03 17:39] VITALS: BP 157/68; PULSE 108; TEMP 36.6; O2SAT 97
[2017-06-03] MEDS: ONDANSETRON INJ 2 MG/ML 2 ML VIAL IV PRN (20:13)
[2017-06-03] MEDS: CLONAZEPAM 0.5 MG TAB PO SCH (21:21)
[2017-06-04 00:02] VITALS: BP 132/76; PULSE 110; TEMP 36.4; O2SAT 92
[2017-06-04 05:48] LABS: BASO % 0.1 %; BASO ABS # 0.02 K/uL (0-0.2); EOS % 0.1 %; EOS ABS # 0.01 K/uL (0-0.5); HEMATOCRIT 31.7 % (37-47); HEMOGLOBIN 10.4 g/dL (12.0-16.0); IG# 0.28 K/uL (0.00-0.02); LYMPH % 9.4 %; MEAN CELL VOLUME 90.1 fL (80-100); MEAN CORPUSCULAR HEMOGLOBIN 29.5 pg (25-34); MEAN CORPUSCULAR HGB CONC 32.8 g/dl (32-36); MEAN PLATELET VOLUME 9.5 fL (7.4-10.4); MONO % 10.4 %; MONO ABS # 1.56 K/uL (0.11-0.59); NEUT % 78.1 %; NEUT ABS # 11.68 K/uL (1.4-6.5); NUCLEATED RED BLOOD CELL ABS 0.04 K/uL (0-0); PLATELET COUNT 100 K/uL (130-400); RED CELL DISTRIBUTION WIDTH CV 14.9 % (11.5-14.5); RED CELL DISTRIBUTION WIDTH SD 48.3 fL (36.4-46.3); WHITE BLOOD COUNT 14.95 K/uL (4.8-10.8)
[2017-06-04] MEDS: HEPARIN SOD 5000 UNIT/0.5 ML CARP SQ SCH ×3 (05:48→20:59)
[2017-06-04 06:26] LABS: CALCIUM 8.4 mg/dl (8.5-10.1); CREATININE 1.67 mg/dl (0.60-1.20); POTASSIUM 4.5 mmol/L (3.5-5.1)
[2017-06-04 06:45] LABS: HEPATITIS A IGM TC 51813E NON-REACTIVE (NON-REACTIVE); HEPATITIS B CORE IGM TC51854R NON-REACTIVE (NON-REACTIVE)
[2017-06-04 07:22] VITALS: BP 144/78; PULSE 119; TEMP 36.8; O2SAT 95
[2017-06-04] MEDS: HydrALAZINE 10 MG TAB PO SCH ×2 (08:49→20:52)
[2017-06-04] MEDS: INSULIN ASPART 100 UNITS/ML 3 ML PEN SC SCH ×4 (08:51→20:58)
[2017-06-04] MEDS: CLOPIDOGREL BISULFATE 75 MG TAB PO SCH (09:12)
[2017-06-04] MEDS: CITALOPRAM 20 MG TAB PO SCH (09:13)
[2017-06-04] MEDS: LEVOFLOXACIN 250 MG TAB PO SCH (11:46)
[2017-06-04 14:25] VITALS: O2SAT 95
--- NOTE | 2017-06-04 15:23 | Progress Note ---
Internal Med Progress Note Date of Service: Jun 04, 2017. Provider Documentation: SUBJECTIVE: sitting on the chair and eating lunch feeling slightly better today had good bowel movement last night nausea and appetite improved somewhat no chest pain has cough ambulating with help OBJECTIVE: Vital Signs-as noted below Exam: General-alert and oriented. Not in distress ENT-Normal hearing Neck-no neck masses supple Lungs-cta b/l no wheezing no crackles Heart-S1 and S2 heard regular rate and rthym, no murmurs Abdomen-Soft bowel sounds present non tender distended Extremities- lower extremity edema present no erythema Neuro-alert and awake moves extremities Lab data as noted below. ASSESSMENT & PLAN: 1. Urinary tract infection. was started on rocephin Patient not feeling well will boarded the abx to cefepime and iv vanco until cx comes back. cx no growth so far abx changed to po Levaquin will complete one week course 2. Acute kidney injury. Her creatinine seems to be normal before this episode,.Presented with Cr 2.1. On fluids abx as above renal us unremarkable cr 1.6 today consulted nephrology stopped fluids yesterday f/u labs 3.Possible Pneumonia abx changed to Levaquin on ct chest 4. Pericardial effusion on ct scan echo trace pericardial effusion, moderate LVH 5. New diagnosis of cirrhosis, most likely secondary to fatty liver disease. ct abd/pelvis questionable left lobe lesion. liver US- same Negative hepatic viral panel GI plans for out patient followup 6. Hepatic lesion. May need MR or liver CT as per GI evaluation. Possibly secondary to metastatic disease, given the history of colon cancer. cannot give contrast secondary to ELYSE. Needs f/u with GI 7. Diabetes type 2 on insulin. On sliding scale coverage while in the hospital. 8. Hyperlipidemia. Holding her statin at this time. 9. Hypertension. On hydralazine. Added Lopressor as tachycardic and BP on higher side and Moderate concentric LVH on echo.will monitor 10. Gastrointestinal prophylaxis with Protonix. 11. Deep venous thrombosis prophylaxis with subcutaneous heparin. 12. Code status. full code. DISPOSITION to be determined pt/ot Vital Signs: Date Time Temp Pulse Resp B/P (MAP) Pulse Ox O2 Delivery O2 Flow Rate FiO2 06/04/17 11:17 Nasal Cannula 2.0 06/04/17 07:22 36.8 119 22 144/78 (100) 95 Nasal Cannula 2.0 06/04/17 00:32 Nasal Cannula 2.0 06/04/17 00:02 36.4 110 18 132/76 (94) 92 Nasal Cannula 2.0 06/03/17 16:00 Nasal Cannula 2.0 06/03/17 16:00 36.6 108 20 157/68 (97) 97 Nasal Cannula 2.0 Lab Results: Results Past 24 Hours Test 06/03/17 16:57 06/03/17 19:57 06/04/17 05:20 06/04/17 07:37 Range/Units Bedside Glucose 160 187 198 70-90 mg/dl White Blood Count 14.95 4.8-10.8 K/uL Red Blood Count 3.52 4.2-5.4 M/uL Hemoglobin 10.4 12.0-16.0 g/dL Hematocrit 31.7 37-47 % Mean Corpuscular Volume 90.1 80-100 fL Mean Corpuscular Hemoglobin 29.5 25-34 pg Mean Corpuscular Hemoglobin Concent 32.8 32-36 g/dl Platelet Count 100 130-400 K/uL Mean Platelet Volume 9.5 7.4-10.4 fL Neutrophils (%) (Auto) 78.1 % Lymphocytes (%) (Auto) 9.4 % Monocytes (%) (Auto) 10.4 % Eosinophils (%) (Auto) 0.1 % Basophils (%) (Auto) 0.1 % Neutrophils # (Auto) 11.68 1.4-6.5 K/uL Lymphocytes # (Auto) 1.40 1.2-3.4 K/uL Monocytes # (Auto) 1.56 0.11-0.59 K/uL Eosinophils # (Auto) 0.01 0-0.5 K/uL Basophils # (Auto) 0.02 0-0.2 K/uL RDW Standard Deviation 48.3 36.4-46.3 fL RDW Coefficient of Variation 14.9 11.5-14.5 % Immature Granulocyte % (Auto) 1.9 % Immature Granulocyte # (Auto) 0.28 0.00-0.02 K/uL Nucleated RBC Absolute Count (auto) 0.04 0-0 K/uL Nucleated Red Blood Cells % 0.3 % Sodium Level 141 136-145 mmol/L Potassium Level 4.5 3.5-5.1 mmol/L Chloride Level 111 98-107 mmol/L Carbon Dioxide Level 17 21-32 mmol/L Anion Gap 13.0 3-11 mmol/L Blood Urea Nitrogen 68 7-18 mg/dl Creatinine 1.67 0.60-1.20 mg/dl Est Creatinine Clear Calc Drug Dose 24.0 ml/min Estimated GFR () 31.3 Estimated GFR (Non- 27.0 BUN/Creatinine Ratio 40.4 10-20 Random Glucose 182 70-99 mg/dl Calcium Level 8.4 8.5-10.1 mg/dl Magnesium Level 2.2 1.8-2.4 mg/dl Test 06/04/17 11:44 Range/Units Bedside Glucose 204 70-90 mg/dl Microbiology Results 06/04/17 MRSA DNA Surveillance Screen - Final, Complete Specimen Negative for MRSA by DNA Probe
[2017-06-04 16:08] VITALS: BP 135/75; PULSE 112; TEMP 36.5; O2SAT 94
[2017-06-04 20:48] VITALS: BP 136/88; PULSE 118
[2017-06-04] MEDS: CLONAZEPAM 0.5 MG TAB PO SCH (20:52)
[2017-06-04] MEDS: DOCUSATE SODIUM/SENNA 50/8.6MG TAB PO SCH (20:52)
[2017-06-04] MEDS: METOPROLOL TARTRATE 25 MG TAB PO SCH (20:52)
[2017-06-05] VITALS: BP 136/81; PULSE 95; TEMP 36.6; O2SAT 91
[2017-06-05] MEDS: HEPARIN SOD 5000 UNIT/0.5 ML CARP SQ SCH (05:51)
[2017-06-05] MEDS: ONDANSETRON INJ 2 MG/ML 2 ML VIAL IV PRN ×3 (06:03→22:34)
[2017-06-05 07:24] VITALS: BP 144/80; PULSE 110; TEMP 36.3; O2SAT 96
[2017-06-05] MEDS: CLOPIDOGREL BISULFATE 75 MG TAB PO SCH (08:11)
[2017-06-05] MEDS: METOPROLOL TARTRATE 25 MG TAB PO SCH ×2 (08:11→21:01)
[2017-06-05] MEDS: LEVOFLOXACIN 250 MG TAB PO SCH (08:11)
[2017-06-05] MEDS: CITALOPRAM 20 MG TAB PO SCH (08:11)
[2017-06-05] MEDS: DOCUSATE SODIUM/SENNA 50/8.6MG TAB PO SCH (08:11)
[2017-06-05] MEDS: HydrALAZINE 10 MG TAB PO SCH ×2 (08:11→21:01)
[2017-06-05 08:34] LABS: HEMATOCRIT 33.9 % (37-47); HEMOGLOBIN 11.2 g/dL (12.0-16.0); MEAN CELL VOLUME 90.2 fL (80-100); MEAN CORPUSCULAR HEMOGLOBIN 29.8 pg (25-34); NUCLEATED RED BLOOD CELL ABS 0.13 K/uL (0-0); RED CELL DISTRIBUTION WIDTH CV 15.7 % (11.5-14.5); RED CELL DISTRIBUTION WIDTH SD 49.2 fL (36.4-46.3); WHITE BLOOD COUNT 18.02 K/uL (4.8-10.8)
[2017-06-05] MEDS: INSULIN ASPART 100 UNITS/ML 3 ML PEN SC SCH ×4 (09:02→21:05)
[2017-06-05 09:08] LABS: MEAN PLATELET VOLUME 9.9 fL (7.4-10.4); PLATELET COUNT 94 K/uL (130-400)
[2017-06-05 09:10] LABS: BASO % 0.2 %; BASO ABS # 0.04 K/uL (0-0.2); EOS % 0.2 %; EOS ABS # 0.04 K/uL (0-0.5); IG# 0.36 K/uL (0.00-0.02); LYMPH % 5.9 %; LYMPH ABS # 1.07 K/uL (1.2-3.4); MONO % 11.9 %; MONO ABS # 2.14 K/uL (0.11-0.59); NEUT % 79.8 %; NEUT ABS # 14.37 K/uL (1.4-6.5)
[2017-06-05 09:53] LABS: CALCIUM 8.9 mg/dl (8.5-10.1); CREATININE 1.61 mg/dl (0.60-1.20); POTASSIUM 4.5 mmol/L (3.5-5.1)
[2017-06-05] MEDS ORDERED: LACTULOSE SYRUP 20 GM/30 ML UDC PO SCH (10:00)
[2017-06-05] MEDS ORDERED: CEFTRIAXONE SOD INJ 1 GM in DEXTROSE 5% ADD-VANTAGE 50ML 50 ML IV SCH ×2 (10:00→11:45)
[2017-06-05] MEDS: LACTULOSE SYRUP 10 GM/15 ML BTL 473 ML PO SCH ×2 (12:09→16:00)
[2017-06-05] MEDS: DOXYCYCLINE HYCLATE 100 MG CAP PO SCH ×2 (12:43→21:02)
[2017-06-05] MEDS ORDERED: HEPARIN 25,000 UNIT/500ML D5W 500 ML IV PRN ×2 (13:45→16:30)
[2017-06-05] MEDS ORDERED: HEPARIN IV LOW DOSE NO BOLUS SCH (14:00)
--- NOTE | 2017-06-05 14:17 | DIAGNOSTIC IMAGING REPORT ---
ADDENDUM Upon further review in light of the chest CT obtained on 06/03/2017, the apparent large segmental defect in the right lower lobe can be explained by the presence of the moderate right pleural effusion. There is also a lesser degree of atelectasis in the right middle lobe. Attention to the degree of atelectasis may explain the right middle lobe perfusion defects. Finally, prominence of the cardiac silhouette and pericardial fat could also explain the apparent defect in the lingula. Therefore, the previously reported "PE present" is not definitive in light of the CT findings. The study is therefore nondiagnostic for pulmonary embolus. If there is continuing clinical concern for pulmonary embolism, CTA of the chest should be obtained. The report will be called/faxed according to standard departmental protocol. Electronically signed by: Dmitry Simon M.D. 06/06/2017 10:19 AM Dictated Date/Time: 06/06/2017 10:13 AM ORIGINAL REPORT LUNG PERFUSION IMAGING CLINICAL HISTORY: 87 years-old Female presenting with PE?. TECHNIQUE: Immediately following the intravenous administration of 5.5 mCi of technetium 99 M MAA for the perfusion scan, anterior, oblique, lateral, and posterior views of the chest were obtained. Perfusion-only modified PIOPED II criteria were utilized for assessment. COMPARISON: None. FINDINGS: Segmental perfusion defect in the anterior basal segment of the right lower lobe (10). Additionally, up to 50% perfusion defects of the medial (5) and lateral (4) segments of the right middle lobe. Greater than 75% perfusion defects also in the superior (13) and inferior (14) lingula. Cardiomegaly suspected. Reference: Perfusion-only modified PIOPED II criteria PE absent: [id number] perfusion defect; contour defect caused by enlarged heart, mediastinum, or diaphragm; near-normal perfusion; normal perfusion. Nondiagnostic: Cannot classify as PE present for PE absent. PE present: > or = 1 large mismatch segmental defects. IMPRESSION: PE present. The report will be called/faxed according to standard departmental protocol. Electronically signed by: Dmitry Simon M.D. 06/05/2017 2:16 PM Dictated Date/Time: 06/05/2017 2:02 PM
[2017-06-05] MEDS: SODIUM CHLORIDE 0.9% 1000ML 1,000 ML IV SCH (14:34)
--- NOTE | 2017-06-05 14:53 | DIAGNOSTIC IMAGING REPORT ---
ULTRASOUND BILATERAL LOWER EXTREMITY VENOUS CLINICAL HISTORY: Acute renal insufficiency. Clinical concern for deep venous thrombosis. COMPARISON STUDY: No priors. TECHNIQUE: Real-time, grayscale, and color Doppler sonography of the deep veins of the right and left lower extremity was performed from the inguinal crease to the calf. Compression and augmentation were utilized. FINDINGS: There is no sonographic evidence of deep venous thrombosis identified in the right or left lower extremity. The common femoral, superficial femoral, and popliteal veins are patent and normally compressible bilaterally. The greater saphenous vein and the profunda femoris vein at the junction with the common femoral vein are clear in both legs. The visualized calf veins are patent bilaterally. Soft tissue edema is noted in the legs. IMPRESSION: There is no sonographic evidence of deep venous thrombosis identified in the right or left lower extremity. Electronically signed by: Moris Alas M.D. 06/05/2017 2:52 PM Dictated Date/Time: 06/05/2017 2:51 PM
[2017-06-05 15:17] VITALS: BP 153/81; PULSE 99; O2SAT 92
[2017-06-05 15:32] LABS: HEMATOCRIT 34.7 % (37-47); HEMOGLOBIN 11.5 g/dL (12.0-16.0); MEAN CELL VOLUME 90.4 fL (80-100); MEAN CORPUSCULAR HEMOGLOBIN 29.9 pg (25-34); NUCLEATED RED BLOOD CELL ABS 0.17 K/uL (0-0); RED CELL DISTRIBUTION WIDTH CV 15.9 % (11.5-14.5); RED CELL DISTRIBUTION WIDTH SD 49.8 fL (36.4-46.3); WHITE BLOOD COUNT 18.18 K/uL (4.8-10.8)
[2017-06-05 15:38] LABS: BASO % 0.2 %; BASO ABS # 0.04 K/uL (0-0.2); EOS % 0.1 %; EOS ABS # 0.01 K/uL (0-0.5); IG# 0.65 K/uL (0.00-0.02); LYMPH % 4.1 %; LYMPH ABS # 0.75 K/uL (1.2-3.4); MEAN CORPUSCULAR HGB CONC 33.1 g/dl (32-36); MEAN PLATELET VOLUME 9.9 fL (7.4-10.4); MONO % 6.9 %; MONO ABS # 1.26 K/uL (0.11-0.59); NEUT % 85.1 %; NEUT ABS # 15.47 K/uL (1.4-6.5); PLATELET COUNT 86 K/uL (130-400)
[2017-06-05 15:53] LABS: INR 1.8 (0.9-1.1)
[2017-06-05 15:55] LABS: PTT PATIENT 46.4 SECONDS (21.0-31.0)
[2017-06-05 16:00] VITALS: O2SAT 92
[2017-06-05] MEDS ORDERED: HEPARIN IV BOLUS 5,000 UNIT in SYRINGE 0 ML IV ONE (16:30)
[2017-06-05] MEDS: PROMETHAZINE HCL INJ 12.5 MG in SODIUM CHLORIDE 0.9% 50ML 50 ML IV PRN (16:42)
--- NOTE | 2017-06-05 19:40 | Progress Note ---
Internal Med Progress Note Date of Service: Jun 05, 2017. Provider Documentation: SUBJECTIVE: nauseous not eating much afebrile denies sob or chest pain has some cough not feeling good OBJECTIVE: Vital Signs-as noted below Exam: General-alert and oriented. Not in distress ENT-Normal hearing Neck-no neck masses supple Lungs-cta b/l no wheezing no crackles Heart-S1 and S2 heard regular rate and rthym, no murmurs Abdomen-Soft bowel sounds present non tender distended Extremities- lower extremity edema present no erythema Neuro-alert and awake moves extremities Lab data as noted below. ASSESSMENT & PLAN: 1. Urinary tract infection. was started on rocephin Patient not feeling well received abx cx no groweth will reculture 2. Acute kidney injury. Her creatinine seems to be normal before this episode,.Presented with Cr 2.1. On fluids abx as above renal us unremarkable cr 1.6 today consulted nephrology gentle fluids f/u labs 3.Possible Pneumonia on doxy and rocephin on ct chest 4. Pericardial effusion on ct scan echo trace pericardial effusion, moderate LVH 5. PE? tachycardia d dimer elevated venous Doppler negative v/q scan- PE present started on iv heparin will consult pulmonary 6. New diagnosis of cirrhosis, most likely secondary to fatty liver disease. ct abd/pelvis questionable left lobe lesion. liver US- same Negative hepatic viral panel ammonia 67 started on lactulose GI plans for out patient followup will discuss with GI 6. Hepatic lesion. May need MR or liver CT as per GI evaluation. Possibly secondary to metastatic disease, given the history of colon cancer. cannot give contrast secondary to ELYSE. Needs f/u with GI 7. Diabetes type 2 on insulin. On sliding scale coverage while in the hospital. 8. Hyperlipidemia. Holding her statin at this time. 9. Hypertension. On hydralazine. Added Lopressor as tachycardic and BP on higher side and Moderate concentric LVH on echo.will monitor 10. Gastrointestinal prophylaxis with Protonix. 11. Deep venous thrombosis prophylaxis with iv heparin 12. Code status. full code. DISPOSITION to be determined pt/ot Vital Signs: Date Time Temp Pulse Resp B/P (MAP) Pulse Ox O2 Delivery O2 Flow Rate FiO2 06/05/17 15:17 99 18 153/81 (105) 92 Humidified Oxygen 2.0 06/05/17 09:20 Room Air 1/4/18 07:24 36.3 110 22 144/80 (101) 96 Nasal Cannula 2.0 06/05/17 00:00 36.6 95 20 136/81 (99) 91 Nasal Cannula 2.0 06/05/17 00:00 Nasal Cannula 2.0 Humidified Oxygen 06/04/17 20:48 118 136/88 (104) Lab Results: Results Past 24 Hours Test 06/04/17 19:52 06/05/17 07:37 06/05/17 08:11 06/05/17 10:27 Range/Units Bedside Glucose 171 163 70-90 mg/dl White Blood Count 18.02 4.8-10.8 K/uL Red Blood Count 3.76 4.2-5.4 M/uL Hemoglobin 11.2 12.0-16.0 g/dL Hematocrit 33.9 37-47 % Mean Corpuscular Volume 90.2 80-100 fL Mean Corpuscular Hemoglobin 29.8 25-34 pg Mean Corpuscular Hemoglobin Concent 33.0 32-36 g/dl Platelet Count 94 130-400 K/uL Mean Platelet Volume 9.9 7.4-10.4 fL Neutrophils (%) (Auto) 79.8 % Lymphocytes (%) (Auto) 5.9 % Monocytes (%) (Auto) 11.9 % Eosinophils (%) (Auto) 0.2 % Basophils (%) (Auto) 0.2 % Neutrophils # (Auto) 14.37 1.4-6.5 K/uL Lymphocytes # (Auto) 1.07 1.2-3.4 K/uL Monocytes # (Auto) 2.14 0.11-0.59 K/uL Eosinophils # (Auto) 0.04 0-0.5 K/uL Basophils # (Auto) 0.04 0-0.2 K/uL RDW Standard Deviation 49.2 36.4-46.3 fL RDW Coefficient of Variation 15.7 11.5-14.5 % Immature Granulocyte % (Auto) 2.0 % Immature Granulocyte # (Auto) 0.36 0.00-0.02 K/uL Nucleated RBC Absolute Count (auto) 0.13 0-0 K/uL Nucleated Red Blood Cells % 0.7 % Hypersegmented Polys 1+ Toxic Granulation 1+ Platelet Estimate DECREASED Hypochromasia PRESENT Echinocytes 1+ Sodium Level 138 136-145 mmol/L Potassium Level 4.5 3.5-5.1 mmol/L Chloride Level 109 98-107 mmol/L Carbon Dioxide Level 18 21-32 mmol/L Anion Gap 11.0 3-11 mmol/L Blood Urea Nitrogen 67 7-18 mg/dl Creatinine 1.61 0.60-1.20 mg/dl Est Creatinine Clear Calc Drug Dose 24.9 ml/min Estimated GFR () 32.8 Estimated GFR (Non- 28.3 BUN/Creatinine Ratio 41.7 10-20 Random Glucose 155 70-99 mg/dl Calcium Level 8.9 8.5-10.1 mg/dl Magnesium Level 2.1 1.8-2.4 mg/dl Ammonia 67.0 11-32 umol/L Heparin-PF4 Antibody Screen NEG NEG Test 06/05/17 11:43 06/05/17 11:55 06/05/17 15:19 06/05/17 16:47 Range/Units Bedside Glucose 210 132 70-90 mg/dl D-Dimer > 30295 0-500 ug/L FEU White Blood Count 18.18 4.8-10.8 K/uL Red Blood Count 3.84 4.2-5.4 M/uL Hemoglobin 11.5 12.0-16.0 g/dL Hematocrit 34.7 37-47 % Mean Corpuscular Volume 90.4 80-100 fL Mean Corpuscular Hemoglobin 29.9 25-34 pg Mean Corpuscular Hemoglobin Concent 33.1 32-36 g/dl Platelet Count 86 130-400 K/uL Mean Platelet Volume 9.9 7.4-10.4 fL Neutrophils (%) (Auto) 85.1 % Lymphocytes (%) (Auto) 4.1 % Monocytes (%) (Auto) 6.9 % Eosinophils (%) (Auto) 0.1 % Basophils (%) (Auto) 0.2 % Neutrophils # (Auto) 15.47 1.4-6.5 K/uL Lymphocytes # (Auto) 0.75 1.2-3.4 K/uL Monocytes # (Auto) 1.26 0.11-0.59 K/uL Eosinophils # (Auto) 0.01 0-0.5 K/uL Basophils # (Auto) 0.04 0-0.2 K/uL RDW Standard Deviation 49.8 36.4-46.3 fL RDW Coefficient of Variation 15.9 11.5-14.5 % Immature Granulocyte % (Auto) 3.6 % Immature Granulocyte # (Auto) 0.65 0.00-0.02 K/uL Nucleated RBC Absolute Count (auto) 0.17 0-0 K/uL Nucleated Red Blood Cells % 0.9 % Prothrombin Time 18.5 9.0-12.0 SECONDS Prothromb Time International Ratio 1.8 0.9-1.1 Activated Partial Thromboplast Time 46.4 21.0-31.0 SECONDS Partial Thromboplastin Ratio 1.8
[2017-06-05] MEDS: CLONAZEPAM 0.5 MG TAB PO SCH (21:00)
--- NOTE | 2017-06-05 22:56 | Progress Note ---
Internal Med Progress Note Date of Service: Jun 05, 2017. Provider Documentation: Made aware by RN of increased bruising on the back extending to patient lower extremity. Patient denies back pain. Not reliable as per RN due to decreased responsiveness attributed to hepatic encephalopathy. Hold IV heparin for now. CT abdomen pelvis RE back bruising rule out retroperitoneal bleed CT head RE worsening encephalopathy rule out bleed Will relay to AM provider. Vital Signs: Date Time Temp Pulse Resp B/P (MAP) Pulse Ox O2 Delivery O2 Flow Rate FiO2 06/06/17 08:40 Room Air 06/06/17 07:49 36.2 107 20 138/82 (100) 93 2.0 06/06/17 00:19 36.9 95 20 142/82 (102) 93 Nasal Cannula 2.0 06/06/17 00:00 92 Nasal Cannula 2.0 Humidified Oxygen 06/05/17 16:00 92 Nasal Cannula 2.0 Humidified Oxygen 06/05/17 15:17 99 18 153/81 (105) 92 Humidified Oxygen 2.0 Lab Results: Results Past 24 Hours Test 06/05/17 11:43 06/05/17 11:55 06/05/17 15:19 06/05/17 16:47 Range/Units Bedside Glucose 210 132 70-90 mg/dl D-Dimer > 77636 0-500 ug/L FEU White Blood Count 18.18 4.8-10.8 K/uL Red Blood Count 3.84 4.2-5.4 M/uL Hemoglobin 11.5 12.0-16.0 g/dL Hematocrit 34.7 37-47 % Mean Corpuscular Volume 90.4 80-100 fL Mean Corpuscular Hemoglobin 29.9 25-34 pg Mean Corpuscular Hemoglobin Concent 33.1 32-36 g/dl Platelet Count 86 130-400 K/uL Mean Platelet Volume 9.9 7.4-10.4 fL Neutrophils (%) (Auto) 85.1 % Lymphocytes (%) (Auto) 4.1 % Monocytes (%) (Auto) 6.9 % Eosinophils (%) (Auto) 0.1 % Basophils (%) (Auto) 0.2 % Neutrophils # (Auto) 15.47 1.4-6.5 K/uL Lymphocytes # (Auto) 0.75 1.2-3.4 K/uL Monocytes # (Auto) 1.26 0.11-0.59 K/uL Eosinophils # (Auto) 0.01 0-0.5 K/uL Basophils # (Auto) 0.04 0-0.2 K/uL RDW Standard Deviation 49.8 36.4-46.3 fL RDW Coefficient of Variation 15.9 11.5-14.5 % Immature Granulocyte % (Auto) 3.6 % Immature Granulocyte # (Auto) 0.65 0.00-0.02 K/uL Nucleated RBC Absolute Count (auto) 0.17 0-0 K/uL Nucleated Red Blood Cells % 0.9 % Prothrombin Time 18.5 9.0-12.0 SECONDS Prothromb Time International Ratio 1.8 0.9-1.1 Activated Partial Thromboplast Time 46.4 21.0-31.0 SECONDS Partial Thromboplastin Ratio 1.8 Test 06/05/17 20:09 06/05/17 23:14 06/06/17 07:05 06/06/17 07:06 Range/Units Bedside Glucose 179 70-90 mg/dl White Blood Count 20.91 25.14 4.8-10.8 K/uL Red Blood Count 3.65 3.80 4.2-5.4 M/uL Hemoglobin 11.0 11.4 12.0-16.0 g/dL Hematocrit 33.0 34.3 37-47 % Mean Corpuscular Volume 90.4 90.3 80-100 fL Mean Corpuscular Hemoglobin 30.1 30.0 25-34 pg Mean Corpuscular Hemoglobin Concent 33.3 33.2 32-36 g/dl Platelet Count 104 69 130-400 K/uL Mean Platelet Volume 10.0 9.7 7.4-10.4 fL Neutrophils (%) (Auto) 78.6 75.8 % Lymphocytes (%) (Auto) 4.0 7.4 % Monocytes (%) (Auto) 12.5 10.1 % Eosinophils (%) (Auto) 0.0 0.1 % Basophils (%) (Auto) 0.4 0.6 % Neutrophils # (Auto) 16.42 19.04 1.4-6.5 K/uL Lymphocytes # (Auto) 0.83 1.86 1.2-3.4 K/uL Monocytes # (Auto) 2.61 2.54 0.11-0.59 K/uL Eosinophils # (Auto) 0.01 0.03 0-0.5 K/uL Basophils # (Auto) 0.09 0.16 0-0.2 K/uL RDW Standard Deviation 49.8 50.3 36.4-46.3 fL RDW Coefficient of Variation 16.1 16.6 11.5-14.5 % Immature Granulocyte % (Auto) 4.5 6.0 % Immature Granulocyte # (Auto) 0.95 1.51 0.00-0.02 K/uL Nucleated RBC Absolute Count (auto) 0.39 0.89 0-0 K/uL Nucleated Red Blood Cells % 1.9 3.6 % Polychromasia 1+ 1+ Activated Partial Thromboplast Time > 300.0 54.8 21.0-31.0 SECONDS Partial Thromboplastin Ratio > 11.0 2.1 Echinocytes 1+ Sodium Level 138 136-145 mmol/L Potassium Level 3.5-5.1 mmol/L Chloride Level 107 98-107 mmol/L Carbon Dioxide Level 16 21-32 mmol/L Anion Gap 15.0 3-11 mmol/L Blood Urea Nitrogen 76 7-18 mg/dl Creatinine 2.08 0.60-1.20 mg/dl Est Creatinine Clear Calc Drug Dose 19.3 ml/min Estimated GFR () 24.0 Estimated GFR (Non- 20.7 BUN/Creatinine Ratio 36.4 10-20 Random Glucose 157 70-99 mg/dl Calcium Level 8.6 8.5-10.1 mg/dl Magnesium Level 1.8-2.4 mg/dl Total Bilirubin 3.2 0.2-1 mg/dl Direct Bilirubin 0-0.2 mg/dl Aspartate Amino Transf (AST/SGOT) 15-37 U/L Alanine Aminotransferase (ALT/SGPT) 296 12-78 U/L Alkaline Phosphatase 433 45-117 U/L Ammonia 57.0 11-32 umol/L Total Protein 6.0 6.4-8.2 gm/dl Albumin 2.8 3.4-5.0 gm/dl Test 06/06/17 07:43 06/06/17 08:04 06/06/17 10:03 Range/Units Bedside Glucose 176 70-90 mg/dl Potassium Level 4.9 3.5-5.1 mmol/L Magnesium Level 2.1 1.8-2.4 mg/dl Direct Bilirubin 1.5 0-0.2 mg/dl Aspartate Amino Transf (AST/SGOT) 2042 15-37 U/L Fibrinogen < 35 184-400 mg/dl Fibrin Degradation Products >40 <10 mcg/ml Vitamin B12 Level > 1999 211-911 pg/mL Folate 14.43 >5.38 ng/mL Microbiology Results 06/06/17 Blood Culture, Received Pending 06/06/17 Blood Culture, Received Pending 06/06/17 Urine Culture, Received Pending
[2017-06-05 23:33] LABS: MEAN CELL VOLUME 90.4 fL (80-100); MEAN CORPUSCULAR HEMOGLOBIN 30.1 pg (25-34); MEAN CORPUSCULAR HGB CONC 33.3 g/dl (32-36); NUCLEATED RED BLOOD CELL ABS 0.39 K/uL (0-0); PLATELET COUNT 104 K/uL (130-400); RED CELL DISTRIBUTION WIDTH CV 16.1 % (11.5-14.5); RED CELL DISTRIBUTION WIDTH SD 49.8 fL (36.4-46.3); WHITE BLOOD COUNT 20.91 K/uL (4.8-10.8)
[2017-06-05 23:58] LABS: BASO % 0.4 %; BASO ABS # 0.09 K/uL (0-0.2); EOS ABS # 0.01 K/uL (0-0.5); IG# 0.95 K/uL (0.00-0.02); LYMPH ABS # 0.83 K/uL (1.2-3.4); MONO % 12.5 %; MONO ABS # 2.61 K/uL (0.11-0.59); NEUT % 78.6 %; NEUT ABS # 16.42 K/uL (1.4-6.5)
[2017-06-06] VITALS: O2SAT 92
[2017-06-06 00:19] VITALS: BP 142/82; PULSE 95; TEMP 36.9; O2SAT 93
[2017-06-06 00:36] LABS: PTT PATIENT > 300.0 SECONDS (21.0-31.0)
[2017-06-06] MEDS: PROMETHAZINE HCL INJ 12.5 MG in SODIUM CHLORIDE 0.9% 50ML 50 ML IV PRN (05:05)
[2017-06-06 07:13] LABS: HEMATOCRIT 34.3 % (37-47); HEMOGLOBIN 11.4 g/dL (12.0-16.0); MEAN CELL VOLUME 90.3 fL (80-100); MEAN CORPUSCULAR HGB CONC 33.2 g/dl (32-36); NUCLEATED RED BLOOD CELL ABS 0.89 K/uL (0-0); RED CELL DISTRIBUTION WIDTH CV 16.6 % (11.5-14.5); RED CELL DISTRIBUTION WIDTH SD 50.3 fL (36.4-46.3); WHITE BLOOD COUNT 25.14 K/uL (4.8-10.8)
--- NOTE | 2017-06-06 07:29 | DIAGNOSTIC IMAGING REPORT ---
HEAD WITHOUT CONTRAST (CT) CLINICAL HISTORY: 87 years-old Female presenting with ams. TECHNIQUE: Multidetector CT imaging of the head was performed without the use of intravenous contrast. IV contrast: None. A dose lowering technique was used consistent with the principles of ALARA (as low as reasonably achievable). COMPARISON: 05/31/2017. CT DOSE (mGy.cm): The estimated cumulative dose is 537.48 mGy.cm. FINDINGS: Shredding Machine Tender topogram: Unremarkable. Proportional ventricular and sulcal prominence, likely age-related parenchymal volume loss. Brain parenchyma normal in appearance with preserved dickson-white differentiation. No mass effect or midline shift. No hemorrhage or acute territorial infarct. No extra-axial fluid collection. Paranasal sinuses and mastoid air cells clear. Calvarium intact. Bilateral pitka's point lenses are absent. Apparent soft tissue defect over the right temporoparietal region without visible subcutaneous fat or cutis. IMPRESSION: 1. No acute intracranial abnormality. 2. Persistent apparent soft tissue defect along the right temporoparietal region. Correlate clinically. Electronically signed by: Dmitry Simon M.D. 06/06/2017 7:27 AM Dictated Date/Time: 06/06/2017 6:34 AM
[2017-06-06 07:33] LABS: MEAN PLATELET VOLUME 9.7 fL (7.4-10.4); PLATELET COUNT 69 K/uL (130-400)
[2017-06-06 07:41] LABS: PTT PATIENT 54.8 SECONDS (21.0-31.0)
[2017-06-06 07:49] VITALS: BP 138/82; PULSE 107; TEMP 36.2; O2SAT 93
[2017-06-06] MEDS: METOPROLOL TARTRATE 25 MG TAB PO SCH (07:52)
[2017-06-06] MEDS: DOXYCYCLINE HYCLATE 100 MG CAP PO SCH (07:52)
[2017-06-06] MEDS: SODIUM CHLORIDE 0.9% 1000ML 1,000 ML IV SCH (07:52)
[2017-06-06] MEDS: CITALOPRAM 20 MG TAB PO SCH (07:52)
[2017-06-06 07:53] LABS: ALBUMIN 2.8 gm/dl (3.4-5.0); CALCIUM 8.6 mg/dl (8.5-10.1); CREATININE 2.08 mg/dl (0.60-1.20)
[2017-06-06] MEDS: CLOPIDOGREL BISULFATE 75 MG TAB PO SCH (07:53)
[2017-06-06] MEDS: HydrALAZINE 10 MG TAB PO SCH (07:53)
[2017-06-06] MEDS: ONDANSETRON INJ 2 MG/ML 2 ML VIAL IV PRN (07:57)
--- NOTE | 2017-06-06 08:12 | DIAGNOSTIC IMAGING REPORT ---
ABD/PELVIS NO IV OR ORAL CONT CLINICAL HISTORY: 87 years-old Female presenting with back/thigh bruising ro retroperitoneal bleed. TECHNIQUE: Multidetector CT of the abdomen and pelvis was performed without the use of intravenous contrast. IV contrast: None. A dose lowering technique was used consistent with the principles of ALARA (as low as reasonably achievable). COMPARISON: 05/31/2017. CT DOSE (mGy.cm): The estimated cumulative dose is 1189.82 mGy.cm. 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 Lung bases: Increased consolidation and volume loss in the right lung base. Increased size of small to moderate right pleural effusion. Trace left pleural effusion. Stable to slightly increased size of the small pericardial effusion. Multichamber enlargement of the heart. Coronary artery calcification. Liver: Nodular contour of the liver consistent with cirrhosis. Diffusely infiltrated appearance of the liver. Underlying lesions cannot be excluded. Biliary: No gross biliary ductal dilatation allowing for noncontrast technique. Gallbladder decompressed. Gallbladder wall thickening likely secondary to portal hypertension or reactive changes associated with the liver. Pancreas: Moderate parenchymal atrophy. Spleen: Spleen is not enlarged. Few parenchymal calcifications could suggest prior granulomatous infection. Adrenal glands: Normal noncontrast appearance. Kidneys and ureters: Hypodensity in the right kidney indeterminate but likely cyst. No hydronephrosis. Nonobstructing punctate calculus at the lower pole of the right kidney. Ureters normal. Bladder: Incompletely evaluated secondary to underdistention. Pelvic organs: Uterus surgically absent. No adnexal masses. Bowel: Colocolonic anastomosis at the upper rectum consistent with prior sigmoidectomy. Antimesenteric portion of mid transverse colon within a wide necked ventral midline hernia. No bowel obstruction. Mild wall thickening of the descending portion of the duodenum, possibly portal enteropathy. Peritoneal cavity: Small amount of abdominal pelvic ascites similar in volume to prior and simple appearing. No free or gas. Lymph nodes: No gross lymphadenopathy allowing for noncontrast technique. Few prominent subcentimeter portacaval, peripancreatic, and mesenteric lymph nodes likely reactive. Vasculature: Atherosclerosis of the normal caliber abdominal aorta. Abdominal wall: Worsening anasarca. Few foci of subcutaneous gas likely from injections in the left lower quadrant. Small wide neck fat and transverse colon containing ventral hernia. Few additional small fat containing ventral midline hernia is likely from prior surgical incisions. Musculoskeletal: Degenerative changes of the spine. IMPRESSION: 1. The most significant change since the prior exam appears to be increased basilar passive atelectasis with increasing right pleural effusion. Otherwise stable examination. 2. Cirrhosis with possible portal hypertension evidenced by ascites, gallbladder wall thickening, and potential portal enterography at the duodenum though the spleen is not enlarged. 3. Unchanged small volume of abdominal pelvic ascites. 4. Worsening anasarca. 5. Diffusely infiltrated appearance of the liver concerning for underlying lesions, metastatic disease not excluded though the concern is for a hepatocellular primary given underlying hepatocellular disease. Differential considerations include heterogeneous fatty deposition. Contrast-enhanced MR of the liver to be considered. 6. Postsurgical changes of sigmoidectomy. 7. Nonobstructing right renal calculus. Electronically signed by: Dmitry Simon M.D. 06/06/2017 8:10 AM Dictated Date/Time: 06/06/2017 6:34 AM
[2017-06-06 08:13] LABS: BASO % 0.6 %; BASO ABS # 0.16 K/uL (0-0.2); EOS % 0.1 %; EOS ABS # 0.03 K/uL (0-0.5); IG# 1.51 K/uL (0.00-0.02); LYMPH % 7.4 %; LYMPH ABS # 1.86 K/uL (1.2-3.4); MONO % 10.1 %; MONO ABS # 2.54 K/uL (0.11-0.59); NEUT % 75.8 %; NEUT ABS # 19.04 K/uL (1.4-6.5)
[2017-06-06] MEDS ORDERED: IMIPENEM/CILASTATIN IV 500 MG in DEXTROSE 5% 100ML 100 ML IV SCH (09:00)
[2017-06-06 09:33] LABS: POTASSIUM 4.9 mmol/L (3.5-5.1)
[2017-06-06] MEDS: INSULIN ASPART 100 UNITS/ML 3 ML PEN SC SCH ×2 (09:35→11:59)
[2017-06-06] MEDS ORDERED: IMIPENEM/CILASTATIN CONSULT ACTIVE PRN (09:45)
[2017-06-06] MEDS ORDERED: VANCOMYCIN CONSULT ACTIVE PRN (09:45)
[2017-06-06] MEDS ORDERED: VANCOMYCIN INJ 2,000 MG in SODIUM CHLORIDE 0.9% 500ML 500 ML IV ONE (10:00)
[2017-06-06] MEDS ORDERED: VANCOMYCIN HCL 250 MG/5 ML SOLN PO SCH (10:00)
[2017-06-06] MEDS ORDERED: RASPBERRY SYRUP 5 ML UDP PO SCH (10:00)
[2017-06-06] MEDS ORDERED: D5W AND NSS 1,000 ML IV SCH (10:00)
--- NOTE | 2017-06-06 10:09 | DIAGNOSTIC IMAGING REPORT ---
CHEST ONE VIEW PORTABLE CLINICAL HISTORY: 87 years-old Female presenting with infiltrate. TECHNIQUE: Portable upright AP view of the chest was obtained. COMPARISON: 06/03/2017, chest CT from 06/03/2017, and perfusion imaging from 06/05/2017. FINDINGS: Atherosclerosis of aortic arch. Cardiac silhouette enlarged. Persistent right basilar opacity. Slight improved aeration of the left lung base. Moderate right pleural effusion. No large left pleural effusion. No pneumothorax. Osseous structures normal. Upper abdomen normal. IMPRESSION: 1. Persistent right basilar consolidation and moderate right pleural effusion. 2. Slight improved aeration at the left lung base. 3. Cardiomegaly. Electronically signed by: Dmitry Simon M.D. 06/06/2017 10:08 AM Dictated Date/Time: 06/06/2017 10:04 AM
--- NOTE | 2017-06-06 10:28 | Pharmacy Progress Note ---
Pharmacy Abx Initial Consult Date of Service Jun 06, 2017. Pharmacy Dosing Scope Date of Consult: 06/06/16 Consultation requested by: Dr. Stone Pharmacy is consulted to initiate Vancomycin/Primaxin IV dosing therapy, order appropriate labs and adjust drug dose/frequency. Subjective The patient is a 87 year old female admitted on May 31, 2017 at 15:55. Objective Height (Feet): 5 Height (Inches): 4.00 Weight (Kilograms): 81.400 Vital Signs (Past 12Hrs) Vital Signs Past 12 Hours Date Time Temp Pulse Resp B/P (MAP) Pulse Ox O2 Delivery O2 Flow Rate FiO2 06/06/17 08:40 Room Air 06/06/17 07:49 36.2 107 20 138/82 (100) 93 2.0 06/06/17 00:19 36.9 95 20 142/82 (102) 93 Nasal Cannula 2.0 06/06/17 00:00 92 Nasal Cannula 2.0 Humidified Oxygen Lab Results (24Hrs) Laboratory Tests (24 Hours) Test 06/06/17 07:06 White Blood Count 25.14 K/uL (4.8-10.8) H Red Blood Count 3.80 M/uL (4.2-5.4) L Hemoglobin 11.4 g/dL (12.0-16.0) L Hematocrit 34.3 % (37-47) L Mean Corpuscular Volume 90.3 fL (80-100) Mean Corpuscular Hemoglobin 30.0 pg (25-34) Mean Corpuscular Hemoglobin Concent 33.2 g/dl (32-36) Platelet Count 69 K/uL (130-400) L Mean Platelet Volume 9.7 fL (7.4-10.4) Neutrophils (%) (Auto) 75.8 % Lymphocytes (%) (Auto) 7.4 % Monocytes (%) (Auto) 10.1 % Eosinophils (%) (Auto) 0.1 % Basophils (%) (Auto) 0.6 % Neutrophils # (Auto) 19.04 K/uL (1.4-6.5) H Lymphocytes # (Auto) 1.86 K/uL (1.2-3.4) Monocytes # (Auto) 2.54 K/uL (0.11-0.59) H Eosinophils # (Auto) 0.03 K/uL (0-0.5) Basophils # (Auto) 0.16 K/uL (0-0.2) Micro Results Date/Time Source Procedure Growth Status 06/06/17 10:03 Blood Blood Culture Pending Ordered 06/06/17 08:54 Blood Blood Culture Pending Ordered 05/31/17 14:03 Blood Blood Culture - Final NO GROWTH Complete 05/31/17 13:54 Blood Blood Culture - Final NO GROWTH Complete 06/04/17 00:00 Nasal MRSA DNA Surveillance Screen - Final Specimen Negative for MRSA by DNA Probe Complete 06/06/17 00:00 Urine , Clean Catch Urine Culture Pending Received 06/01/17 20:15 Urine , Clean Catch Urine Culture - Final NO GROWTH - LESS THAN 1,000 COLONIES/ML Complete Assessment & Plan Assessment 87 year old female admitted 05/31/17 - initiated on ceftriaxone IV for UTI, then broadened 06/01/17 to vancomycin/levaquin for intra-abdominal coverage/ ascitic fluid infection. Pt transitioned off antibiotics 06/02/17 so she has been without antibiotics for >72 hrs. Overnight, pt decompensated and looks much worse this morning per nursing staff. Broad spectrum antibiotics restarted empirically per MD this AM. New cultures pending. Plan Vancomycin IV * Loading dose: 2000 mg (25 mg/kg) * Pt is not at baseline renal function - and may be trending back up given overall decline. * Will opt to dose based on random levels. * Goal random level: 15 to 20 mcg/mL * Random level ordered for 06/07/17 with AM labs Primaxin IV * Target dose: 500 mg IV every 6 hours * Based on current CrCl 15-29 mL/min: 200 mg IV every 6 hours Vancomycin PO initiated to cover possible Cdiff Pharmacy will continue to follow and will adjust dose/frequency as necessary. Thank you.
[2017-06-06 11:00] VITALS: BP 139/84; PULSE 105; TEMP 36.8; O2SAT 90
--- NOTE | 2017-06-06 11:09 | Progress Note ---
Progress Note Date of Service Jun 06, 2017. Progress Note ID Consult Dictated #[id number] A/P: 1. Leukocytosis -No clear infectious source, culture pending, maintain abx pending culture results -Suspect underlying liver disease as source for current clinical picture -discussed with primary
[2017-06-06 11:28] LABS: RETIC COUNT % 5.8 % (0.5-2.0)
--- NOTE | 2017-06-06 11:41 | INFECT. DISEASE CONSULTATION ---
DATE OF CONSULTATION: 06/06/2017 HISTORY OF PRESENT ILLNESS: This is an 87-year-old female who was admitted from home after she had upper respiratory symptoms with associated abdominal distention and discomfort for 2 days prior to admission. She did undergo CAT scan of the abdomen and pelvis which showed cirrhosis, which is a new diagnosis as well as abdominal and pelvic ascites. She does have a history of metastatic melanoma as well as colon cancer resulting in surgery and there was some concern for metastatic disease to the liver. She has had a leukocytosis since admission; however, this has been increasing. She has been on empiric antibiotics secondary to a positive UA on the , which showed greater than 30 wbc's and 4+ bacteria. Her urine culture at that time was negative. Her blood cultures from admission remain negative. Her LFTs are increasing since admission, but has had some minimal improvement. She was also found to have acute kidney injury with a creatinine of 2.2; however, this is improving as well. She was found to have a probable PE on VQ scan and was started on heparin. Upon speaking with the nursing today, she did have an acute decline since starting a heparin drip yesterday and has several areas of ecchymosis, most notably on her left side extending into the buttock and into the back. She also has ecchymosis on the right. She is lethargic on my examination and is being transferred to the intensive care unit. She denies any shortness of breath. She denies any chest pain, but she states that she is having fatigue with speech. She denies any abdominal pain, but continues to complain of abdominal distention. Per nursing, she was ambulating to the bathroom yesterday and has had a decline today. She was given oxygen via mask on my examination. She remains afebrile. She was placed empirically on vancomycin and imipenem and remains on these antibiotics. P.o. vancomycin was added. No C. diff has been sent to date. Repeat blood and urine cultures were ordered today and results of this are pending. She is being followed by GI and nephrology as well. Her remaining review of systems is limited, although negative. PAST MEDICAL HISTORY: Significant for type 2 diabetes with insulin requirement, chronic kidney disease, anxiety, hyperlipidemia, hypertension, malignant melanoma, and colon cancer. PAST SURGICAL HISTORY: Significant for colectomy in 2005, hysterectomy and ovary removal in 1998. FAMILY HISTORY: Noncontributory. SOCIAL HISTORY: Negative for tobacco use, alcohol use and drug use. ALLERGIES: INCLUDE ERYTHROMYCIN. CURRENT MEDICATIONS: Include imipenem, oral vancomycin, Lopressor, Celexa, Plavix, Klonopin, insulin, hydralazine and Zofran. PHYSICAL EXAMINATION: VITAL SIGNS: She is afebrile and has been since admission to the hospital. Pulse is 107, respiratory rate is 20, blood pressure is 138/82, oxygen saturation is 93% on 2 liters nasal cannula. GENERAL: She is awake and appropriate but lethargic. She is mildly jaundiced. HEENT: Mucous membranes are dry. HEART: Regular. I do not auscultate a murmur. LUNGS: Clear with poor inspiratory effort. ABDOMEN: Distended but nontender. There is no edema. SKIN: Reveals multiple ecchymotic areas over both upper extremities and an extensive ecchymosis over the left thigh. She denies any pain to palpation. LABORATORY AND IMAGING STUDIES: CBC this morning reveals a white blood cell count of 25.1, hemoglobin 11.4; and platelets 69 and platelets were 104 yesterday. Chemistry panel reveals a sodium of 138, potassium 4.9, chloride 107, bicarbonate 16, BUN 76, creatinine 2.0. Glucose was 176, total bilirubin today is 3.2, AST is pending, ALT is 296, alkaline phosphatase is 433. Her ammonia level today is 57, it was 67 yesterday; AST on the was 138 and ALT was 79, bilirubin was normal at that time. Hepatitis C antibodies are negative. Flu swab was negative. Her UA from again had greater than 30 wbc's and 4+ bacteria. A repeat urine culture was done today. There is no UA. Blood cultures are pending from today. Her previous blood cultures from the are no growth and final urine culture is also negative and final her most recent imaging, she had a chest x-ray this morning which shows right effusion. CT of the abdomen and pelvis done just yesterday shows worsening anasarca, a diffusely infiltrated appearance of the liver concerning for underlying lesions and metastatic disease, is of concern. MRI should be considered. ASSESSMENT AND PLAN: Leukocytosis. At this time, I feel that this may be reactive to underlying liver disease and this could be the overwhelming cause for her clinical picture. I do not see any clinical indication to suggest active infection with previous negative cultures; however, I would maintain the patient on IV antibiotics pending the results of blood cultures and urine cultures that will be obtained today. If she remains without positive cultures, likely her antibiotics will be stopped early next week. I did discuss with her primary physician. Thank you for this consultation.
--- NOTE | 2017-06-06 12:17 | Discharge Instructions ---
Discharge Instructions Date of Service Jun 06, 2017. Admission Reason for Admission: Miguel, Ascities, Uti Discharge Discharge Diagnosis / Problem: AKL, Liver failure, thrombocytopenia, liver mass , sepsis? Discharge Goals Goal(s): Decrease discomfort, Improve function Activity Recommendations Activity Level: Assistance Required . Additional Information Patient informed of condition: Yes Advance Directives: Yes DNR: No Level of Care: Other ([facility] [place], [place]) Communicable Disease: No Prognosis: Other (transferring to [place]) Oxygen at (LPM): 2-3lts Escobar Catheter: No Instructions / Follow-Up Instructions / Follow-Up FOLLOW PER [facility] RECOMMENDATIONS Current Hospital Diet Patient's current hospital diet: Diabetes Type 2 Diet, Low Sodium Diet (2gm Na) Discharge Diet Recommended Diet: N/A (NPO) Pending Studies Studies pending at discharge: yes List of pending studies: CEA CULTURES PERIPHERAL SMEAR Physician Orders On Transfer IV Therapy: D5NS@50ML/HR IV PRIMAXIN IV VANCO PO VANCO Vital Signs: EVERY HOUR Additional Orders: QUESTIONABLE pe ON V/Q SCAN. INTERMEDIATE PROBABILITY PER RADIOLOGY. LOWER EXTREMITY DOPPLER NEGATIVE Laboratory Results Hemoglobin A1c Test 06/01/17 05:39 Range/Units Estimated Average Glucose 148 mg/dl Hemoglobin A1c 6.8 H 4.5-5.6 % Medical Emergencies . Who to Call and When: Medical Emergencies: If at any time you feel your situation is an emergency, please call 911 immediately. . Non-Emergent Contact Non-Emergency issues call your: Primary Care Provider . . "Provider Documentation" section prepared by Daniel Stone. . Core Measure Problem Core Measures: None
[2017-06-06 12:29] VITALS: O2SAT 88
--- NOTE | 2017-06-06 12:34 | Progress Note ---
Internal Med Progress Note Date of Service: Jun 06, 2017. Provider Documentation: SUBJECTIVE: LETHARGIC TODAY HEMODYNAMICS OK SATS OK ON OXYGEN AFEBRILE NOT FEELING WELL FAMILY REQUESTS FOR TRANSFER TO [place] OBJECTIVE: Vital Signs-as noted below Exam: General-LETHARGIC ENT-Normal hearing Neck-no neck masses supple Lungs-cta b/l no wheezing no crackles Heart-S1 and S2 heard regular rate and rthym, no murmurs Abdomen-Soft bowel sounds present non tender distended Extremities- lower extremity edema present Neuro-DROWSY moves extremities Lab data as noted below. ASSESSMENT & PLAN: 87F PRESENTED WITH URI AND DISTENDED ABDOMEN AND FOUND TO HAVE POSSIBLE UTI AND NEW LIVER CIRRHOSIS AND LIVER MASS AND ARF WITH CR 2.2 AND LEUKOCYTOSIS. WAS TREATED WITH BOARD SPECTRUM CEFEPIME AND IV VANCOMYCIN AND GENTLE FLUIDS. SEEN BY GI AND RECOMMENDED MRI OR CT LIVER WITH CONTRAST. NEPHROLOGY SIGNED OFF CR POSSIBLE NEW BASELINE. RENAL US UNREMARKABLE.BUT NOT GETTING BETTER. STILL FEELING WEAK. CT CHEST SHOWED POSSIBLE PNEUMONIA. CX NO GROWTH.ABX CHANGED TO ROCEPHIN AND DOXYCYCLINE. WAS GETTING TACHYCARDIC. V/Q SCAN DONE YESTERDAY SHOWS PE. LOWER EXTREMITY DOPPLER NEGATIVE FOR DVT. STARTED O IV HEPARIN BUT WAS STOPPED LAST NIGHT PTT>300 AND DEVELOPED BRUISES. TODAY RADIOLOGY THINKS PERFUSION DEFECTS MOSTLY FROM ATELECTASIS AND THINKS POSSIBLY INTERMEDIATE PROBABILITY OF PE.ALSO PATIENT BECAME LETHARGIC TODAY. VITALS STABLE.LAST NIGHT CT ABD/PELVIS WITH OUT CONTRAST SHOWS POSSIBLE HEPATOCELLULAR CARCINOMA. LFTS TODAY SHOWED AST 2000. T.BILIRUBIN 3.5.PLATELETS TRENDING DOWN LAST SEVERAL DAYS AND TODAY IN 60'S. HIT STUDY DONE COUPLE OF DAYS AGO WAS NEGATIVE.AMMONIA LEVEL WAS 67 YESTERDAY TODAY 57. ASLO WBC TRENDING UP TO 25 TODAY.CONSULTED HEME /ONCO AND ID TODAY. BROADENED ABX TO IV PRIMAXIN, IV VANCOMYCIN AND PO VANCOMYCIN. REPEATING CX INCLUDING C.DIFF. HEME/ONCO THINKS PATIENT CONDITION MOST LIKELY FROM LIVER FAILURE. EXPLAINED TO FAMILY THAT POSSIBLE LIVER CANCER. PATIENT NOT GETTING BETTER FAMILY WANTS PATIENT TO BE TRANSFERRED TO [place]. [place] ACCEPTED THE PATIENT BUT AROUND 1230 PATIENT BECAME UNRESPONSIVE AND BOUCHRA FELICIANO WAS CALLED. CPR WAS INITIALED IMMEDIATELY AND CODE WAS RUN PER ACLS PROTOCOL BY CARDIOLOGY AND CRITICAL CARE. PEA ON MONITOR.AFTER ABOUT 20MINUTES CONTRERAS HAD RETURN OF SPONTANEOUS CIRCULATION AND WAS TRANSFERRED TO ICU WHERE SHE HAD ANOTHER CODE. AT THAT AFTER DISCUSSING WITH FAMILY THEY WERE INCLINED FOR DNR BUT BY THEN PATIENT . PATIENT TODAY 06/06/17 AT 1328. CAUSE OF MOST LIKELY ACUTE PE ASPIRATION BLEEDING IN THE AIRWAY, SECONDARY TO LIVER FAILURE FROM POSSIBLE LIVER CANCER POSSIBLE SEPSIS ACUTE RENAL FAILURE HOSPITAL COURSE 1. Urinary tract infection. Patient not feeling well received abx cx no groweth will reculture CURRENTLY ON IV VANCO AND PRIMAXIN 2. Acute kidney injury. Her creatinine seems to be normal before this episode,.Presented with Cr 2.1. On fluids abx as above renal us unremarkable cr 1.6 YESTERDAY BUT AGAIN 2.0 TODAY consulted nephrology gentle fluids f/u labs 3.Possible Pneumonia on ct chest WAS ON ROCEPHIN AND DOXY BUT ABX ABOVE NOW 4. Pericardial effusion on ct scan echo trace pericardial effusion, moderate LVH 5. PE? tachycardia d dimer elevated venous Doppler negative v/q scan- PE present 06/05/17 started on iv heparin IV HEPARIN STOPPED LAST NIGHT DUE TO ELEVATED PTT AND BRUISES RADIOLOGY NOW THINKS PERFUSION DEFECTS MOSTLY FROM ATELECTASIS AND CHANGES TO INTERMEDIATE PROBABILITY. 6. New diagnosis of cirrhosis, most likely secondary to fatty liver disease. ct abd/pelvis questionable left lobe lesion. liver US- same Negative hepatic viral panel ammonia 67 started on lactulose GI plans for out patient followup will discuss with GI 6. Hepatic lesion. May need MR or liver CT as per GI evaluation. Possibly secondary to metastatic disease, given the history of colon cancer. cannot give contrast secondary to ELYSE. Needs f/u with GI 7. Diabetes type 2 on insulin. On sliding scale coverage while in the hospital. 8. Hyperlipidemia. Holding her statin at this time. 9. Hypertension. On hydralazine. Added Lopressor as tachycardic and BP on higher side and Moderate concentric LVH on echo.will monitor 10. Gastrointestinal prophylaxis with Protonix. 11. Deep venous thrombosis prophylaxis . CURRENTLY HEPARIN STOPPED BECAUSE OF ELEVATED PTT 12. Code status. full code. DISPOSITION Vital Signs: Date Time Temp Pulse Resp B/P (MAP) Pulse Ox O2 Delivery O2 Flow Rate FiO2 06/06/17 12:29 88 Oxymask 15.0 06/06/17 11:00 36.8 105 20 139/84 (102) 90 Nasal Cannula 6.0 1/5/18 08:40 Room Air 06/06/17 07:49 36.2 107 20 138/82 (100) 93 2.0 06/06/17 00:19 36.9 95 20 142/82 (102) 93 Nasal Cannula 2.0 06/06/17 00:00 92 Nasal Cannula 2.0 Humidified Oxygen Lab Results: Results Past 24 Hours Test 06/05/17 23:14 06/06/17 07:05 06/06/17 07:06 06/06/17 07:43 Range/Units White Blood Count 20.91 25.14 4.8-10.8 K/uL Red Blood Count 3.65 3.80 4.2-5.4 M/uL Hemoglobin 11.0 11.4 12.0-16.0 g/dL Hematocrit 33.0 34.3 37-47 % Mean Corpuscular Volume 90.4 90.3 80-100 fL Mean Corpuscular Hemoglobin 30.1 30.0 25-34 pg Mean Corpuscular Hemoglobin Concent 33.3 33.2 32-36 g/dl Platelet Count 104 69 130-400 K/uL Mean Platelet Volume 10.0 9.7 7.4-10.4 fL Neutrophils (%) (Auto) 78.6 75.8 % Lymphocytes (%) (Auto) 4.0 7.4 % Monocytes (%) (Auto) 12.5 10.1 % Eosinophils (%) (Auto) 0.0 0.1 % Basophils (%) (Auto) 0.4 0.6 % Neutrophils # (Auto) 16.42 19.04 1.4-6.5 K/uL Lymphocytes # (Auto) 0.83 1.86 1.2-3.4 K/uL Monocytes # (Auto) 2.61 2.54 0.11-0.59 K/uL Eosinophils # (Auto) 0.01 0.03 0-0.5 K/uL Basophils # (Auto) 0.09 0.16 0-0.2 K/uL RDW Standard Deviation 49.8 50.3 36.4-46.3 fL RDW Coefficient of Variation 16.1 16.6 11.5-14.5 % Immature Granulocyte % (Auto) 4.5 6.0 % Immature Granulocyte # (Auto) 0.95 1.51 0.00-0.02 K/uL Nucleated RBC Absolute Count (auto) 0.39 0.89 0-0 K/uL Nucleated Red Blood Cells % 1.9 3.6 % Polychromasia 1+ 1+ Activated Partial Thromboplast Time > 300.0 54.8 21.0-31.0 SECONDS Partial Thromboplastin Ratio > 11.0 2.1 Echinocytes 1+ Sodium Level 138 136-145 mmol/L Potassium Level 3.5-5.1 mmol/L Chloride Level 107 98-107 mmol/L Carbon Dioxide Level 16 21-32 mmol/L Anion Gap 15.0 3-11 mmol/L Blood Urea Nitrogen 76 7-18 mg/dl Creatinine 2.08 0.60-1.20 mg/dl Est Creatinine Clear Calc Drug Dose 19.3 ml/min Estimated GFR () 24.0 Estimated GFR (Non- 20.7 BUN/Creatinine Ratio 36.4 10-20 Random Glucose 157 70-99 mg/dl Calcium Level 8.6 8.5-10.1 mg/dl Magnesium Level 1.8-2.4 mg/dl Total Bilirubin 3.2 0.2-1 mg/dl Direct Bilirubin 0-0.2 mg/dl Aspartate Amino Transf (AST/SGOT) 15-37 U/L Alanine Aminotransferase (ALT/SGPT) 296 12-78 U/L Alkaline Phosphatase 433 45-117 U/L Ammonia 57.0 11-32 umol/L Total Protein 6.0 6.4-8.2 gm/dl Albumin 2.8 3.4-5.0 gm/dl Bedside Glucose 176 70-90 mg/dl Test 06/06/17 08:04 06/06/17 10:03 06/06/17 11:15 06/06/17 13:04 Range/Units Potassium Level 4.9 3.5-5.1 mmol/L Magnesium Level 2.1 1.8-2.4 mg/dl Direct Bilirubin 1.5 0-0.2 mg/dl Aspartate Amino Transf (AST/SGOT) 2042 15-37 U/L Immature Platelet Fraction 4.9 0.9-8.3 % Peripheral Blood Smear Path Consult Absolute Reticulocyte Count 0.23 0.02-0.10 10^6/uL Percent Reticulocyte Count 5.8 0.5-2.0 % Fibrinogen < 35 184-400 mg/dl Fibrin Degradation Products >40 <10 mcg/ml Lactate Dehydrogenase 24922 84-246 U/L Carcinoembryonic Antigen 3411.1 0-2.5 ng/ml Vitamin B12 Level > 1999 211-911 pg/mL Folate 14.43 >5.38 ng/mL Heparin-PF4 Antibody Screen NEG NEG Bedside Glucose 162 70-90 mg/dl Creatine Kinase MB Ratio 0-3.0 Microbiology Results 06/06/17 Blood Culture, Received Pending 06/06/17 Blood Culture, Received Pending 06/06/17 Urine Culture, Received Pending
--- NOTE | 2017-06-06 12:42 | Pulmonary Consultation ---
History General Date of Service: Jun 06, 2017. Stated Complaint: Miguel, Ascities, Uti HPI The patient is a 87 year old female who presents to [facility] with complaints of Miguel, Ascities, Uti. The patient's primary care provider is Avis Morgan D.O.. Consult called for PE in the setting of thrombocytopenia. Plan was for patient to be transferred to [facility] per family request. However, patient currently undergoing CPR for cardiac arrest. Consult cancelled by Dr. Stone. Social History Hx Tobacco Use In Past Year?: No Smoking Status: Never Smoker Marital status: Housing status: lives with family Occupational Status: retired Immunizations History of Influenza Vaccine: Yes History of Tetanus Vaccine?: Unknown History of Pneumococcal: Yes Pneumococcal Date: Mar 02, 2011 History of Hepatitis B Vaccine: Unknown History of MDRO History of MDRO: No Allergies Coded Allergies: Erythromycin (Verified Allergy, Unknown, 05/31/17) Current Medications Reported Home Medications Medications Dose Route/Sig Max Daily Dose Days Date Category Bydureon (Exenatide) 2 Mg Inj 2 Mg INJ WK 05/31/17 Reported Trulicity (Dulaglutide) 1.5 Mg/0.5 Ml Inj 05/31/17 Reported Celexa (Citalopram Hydrobromide) 10 Mg Tab 10 Mg PO DAILY 05/31/17 Reported Hydralazine HCl 10 Mg Tab 10 Mg PO BID 09/23/14 Reported Glimepiride 2 Mg Tab 4 Mg PO BID 09/23/14 Reported Plavix (Clopidogrel Bisulfate) 75 Mg Tab 75 Mg PO DAILY 04/12/12 Reported Lipitor (Atorvastatin) 20 Mg Tab 20 Mg PO DAILY 04/12/12 Reported Klonopin (Clonazepam) 0.5 Mg Tab 1 Mg PO HS 03/25/06 Reported Physical Physical Exam Vital Signs: Date Time Temp Pulse Resp B/P (MAP) Pulse Ox O2 Delivery O2 Flow Rate FiO2 06/06/17 11:00 36.8 105 20 139/84 (102) 90 Nasal Cannula 6.0 06/06/17 08:40 Room Air 06/06/17 07:49 36.2 107 20 138/82 (100) 93 2.0 06/06/17 00:19 36.9 95 20 142/82 (102) 93 Nasal Cannula 2.0 06/06/17 00:00 92 Nasal Cannula 2.0 Humidified Oxygen 06/05/17 16:00 92 Nasal Cannula 2.0 Humidified Oxygen 06/05/17 15:17 99 18 153/81 (105) 92 Humidified Oxygen 2.0 Diagnostics Labs Results Past 24 Hours Test 06/05/17 15:19 06/05/17 16:47 06/05/17 20:09 06/05/17 23:14 Range/Units White Blood Count 18.18 20.91 4.8-10.8 K/uL Red Blood Count 3.84 3.65 4.2-5.4 M/uL Hemoglobin 11.5 11.0 12.0-16.0 g/dL Hematocrit 34.7 33.0 37-47 % Mean Corpuscular Volume 90.4 90.4 80-100 fL Mean Corpuscular Hemoglobin 29.9 30.1 25-34 pg Mean Corpuscular Hemoglobin Concent 33.1 33.3 32-36 g/dl Platelet Count 86 104 130-400 K/uL Mean Platelet Volume 9.9 10.0 7.4-10.4 fL Neutrophils (%) (Auto) 85.1 78.6 % Lymphocytes (%) (Auto) 4.1 4.0 % Monocytes (%) (Auto) 6.9 12.5 % Eosinophils (%) (Auto) 0.1 0.0 % Basophils (%) (Auto) 0.2 0.4 % Neutrophils # (Auto) 15.47 16.42 1.4-6.5 K/uL Lymphocytes # (Auto) 0.75 0.83 1.2-3.4 K/uL Monocytes # (Auto) 1.26 2.61 0.11-0.59 K/uL Eosinophils # (Auto) 0.01 0.01 0-0.5 K/uL Basophils # (Auto) 0.04 0.09 0-0.2 K/uL RDW Standard Deviation 49.8 49.8 36.4-46.3 fL RDW Coefficient of Variation 15.9 16.1 11.5-14.5 % Immature Granulocyte % (Auto) 3.6 4.5 % Immature Granulocyte # (Auto) 0.65 0.95 0.00-0.02 K/uL Nucleated RBC Absolute Count (auto) 0.17 0.39 0-0 K/uL Nucleated Red Blood Cells % 0.9 1.9 % Prothrombin Time 18.5 9.0-12.0 SECONDS Prothromb Time International Ratio 1.8 0.9-1.1 Activated Partial Thromboplast Time 46.4 > 300.0 21.0-31.0 SECONDS Partial Thromboplastin Ratio 1.8 > 11.0 Bedside Glucose 132 179 70-90 mg/dl Polychromasia 1+ Test 06/06/17 07:05 06/06/17 07:06 06/06/17 07:43 06/06/17 08:04 Range/Units Activated Partial Thromboplast Time 54.8 21.0-31.0 SECONDS Partial Thromboplastin Ratio 2.1 White Blood Count 25.14 4.8-10.8 K/uL Red Blood Count 3.80 4.2-5.4 M/uL Hemoglobin 11.4 12.0-16.0 g/dL Hematocrit 34.3 37-47 % Mean Corpuscular Volume 90.3 80-100 fL Mean Corpuscular Hemoglobin 30.0 25-34 pg Mean Corpuscular Hemoglobin Concent 33.2 32-36 g/dl Platelet Count 69 130-400 K/uL Mean Platelet Volume 9.7 7.4-10.4 fL Neutrophils (%) (Auto) 75.8 % Lymphocytes (%) (Auto) 7.4 % Monocytes (%) (Auto) 10.1 % Eosinophils (%) (Auto) 0.1 % Basophils (%) (Auto) 0.6 % Neutrophils # (Auto) 19.04 1.4-6.5 K/uL Lymphocytes # (Auto) 1.86 1.2-3.4 K/uL Monocytes # (Auto) 2.54 0.11-0.59 K/uL Eosinophils # (Auto) 0.03 0-0.5 K/uL Basophils # (Auto) 0.16 0-0.2 K/uL RDW Standard Deviation 50.3 36.4-46.3 fL RDW Coefficient of Variation 16.6 11.5-14.5 % Immature Granulocyte % (Auto) 6.0 % Immature Granulocyte # (Auto) 1.51 0.00-0.02 K/uL Nucleated RBC Absolute Count (auto) 0.89 0-0 K/uL Nucleated Red Blood Cells % 3.6 % Polychromasia 1+ Echinocytes 1+ Sodium Level 138 136-145 mmol/L Potassium Level 4.9 3.5-5.1 mmol/L Chloride Level 107 98-107 mmol/L Carbon Dioxide Level 16 21-32 mmol/L Anion Gap 15.0 3-11 mmol/L Blood Urea Nitrogen 76 7-18 mg/dl Creatinine 2.08 0.60-1.20 mg/dl Est Creatinine Clear Calc Drug Dose 19.3 ml/min Estimated GFR () 24.0 Estimated GFR (Non- 20.7 BUN/Creatinine Ratio 36.4 10-20 Random Glucose 157 70-99 mg/dl Calcium Level 8.6 8.5-10.1 mg/dl Magnesium Level 2.1 1.8-2.4 mg/dl Total Bilirubin 3.2 0.2-1 mg/dl Direct Bilirubin 1.5 0-0.2 mg/dl Aspartate Amino Transf (AST/SGOT) 2042 15-37 U/L Alanine Aminotransferase (ALT/SGPT) 296 12-78 U/L Alkaline Phosphatase 433 45-117 U/L Ammonia 57.0 11-32 umol/L Total Protein 6.0 6.4-8.2 gm/dl Albumin 2.8 3.4-5.0 gm/dl Bedside Glucose 176 70-90 mg/dl Test 06/06/17 10:03 06/06/17 11:15 06/06/17 11:53 Range/Units Immature Platelet Fraction 4.9 0.9-8.3 % Absolute Reticulocyte Count 0.23 0.02-0.10 10^6/uL Percent Reticulocyte Count 5.8 0.5-2.0 % Fibrinogen < 35 184-400 mg/dl Fibrin Degradation Products >40 <10 mcg/ml Vitamin B12 Level > 1999 211-911 pg/mL Folate 14.43 >5.38 ng/mL Heparin-PF4 Antibody Screen NEG NEG Bedside Glucose 162 70-90 mg/dl Microbiology Results 06/06/17 Blood Culture, Received Pending 06/06/17 Blood Culture, Received Pending 06/06/17 Urine Culture, Received Pending
[2017-06-06] MEDS ORDERED: IMIPENEM-CILASTATIN 200 MG in DEXTROSE 5% 100ML 100 ML IV SCH (14:00)
--- NOTE | 2017-06-06 14:01 | Cardiology Consultation ---
Cardiology Consultation Date of Service Jun 06, 2017. Cardiology Consultation I responded to a CODE BLUE emergency activated at 12:32 PM today. The patient had lost consciousness. On my arrival she was pulseless, and the library monitor revealed an agonal bradycardic rhythm that had been acute in onset. ACLS was performed with resuscitation per the pulseless electrical activity algorithm. Dr Isaacs of critical care arrives shortly after me along with Dr Stone. The patient received prolonged CPR. She initially received 2 doses of IV atropine and epinephrine, subsequently with improvement in her heart rate, and sinus tachycardia with ectopy as well as atrial fibrillation was felt to have been demonstrated on the library monitor. She received additional doses of IV epinephrine. An airway was established by critical care with use of the glide scope. Return of circulation was achieved and she was transferred down to the first floor intensive care unit where she was once again found to be pulseless. CPR was once again initiated with additional doses of IV epinephrine, sodium bicarbonate, and initiation of epinephrine infusion. The patient once again became pulseless despite prolonged CPR a pulse did not return. A limited bedside echocardiogram was performed between chest compressions with use of the on-site critical care machine revealing no significant pericardial effusion. Left ventricle was small and underfilled with agonal motion and the right ventricle was felt to be dilated and hypokinetic. The patient was noted to have significant blood from the endotracheal tube. The care team discussed the potential high risk for this having been due to an initial respiratory event with possible mucus plugging or aspiration, versus acute pulmonary embolism. The patient was not responding after prolonged resuscitation efforts and it was determined that ongoing efforts would be futile including consideration of thrombolytic therapy. Ultimately resuscitation efforts were discontinued at 1328 hrs. I discussed her CODE BLUE course with her and son.
[2017-06-06] MEDS ORDERED: SODIUM BICARB 8.4% INJ 50 MEQ/50 ML SYR IV ONE (15:30)
[2017-06-06] MEDS ORDERED: ATROPINE SULFATE 0.1 MG/ML 10 ML SYR IV ONE (15:30)
[2017-06-06] MEDS ORDERED: SODIUM CHLORIDE 0.9% 10ML FLUSH IV ONE (15:30)
--- NOTE | 2017-06-06 19:34 | Procedure Note ---
Procedure Note Date of Service Jun 06, 2017. Procedure Note Procedure Date: 06/06/2016 Procedure: Endotracheal intubation Pre-procedure Diagnosis: Cardiac arrest, CODE BLUE Post-procedure Diagnosis: same as above Prior to Procedure: Informed Consent: emergent Attending Staff: Bart Isaacs DO Indications: Patient is an 87-year-old female who is in cardiac arrest, CODE BLUE was called . Description of Procedure: During cardiac arrest, the patient was being [id number] ventilated during my first attempt with a 2 Jaimes blade the patient's airway was anterior, required bimanual laryngoscopy with emergency room physician assistant holding pressure, the tube was noted to pass through the cords. Patient was difficult to bag, there was no end -tidal color change. The balloon was deflated and when the cuff were removed there was a significant mucous plug that was removed. The patient was again ventilated by a agonal valve mask ventilation. Respiratory therapist reported that the patient was easier to [id number] ventilate after removal of this mucous plug. Upon second sounds with a 2 Jaimes blade, and again bimanual laryngoscopy I was able to achieve a grade 3 view after chest compressions were halted. I did not visualize the tube passing through the vocal cords. With end-tidal CO2 monitoring there was not adequate color change. This was immediately recognized and the tube was removed. Again the patient was bag valve mask ventilated. Considerations of ball-valve type obstruction in the upper airway were considered in addition to endotracheal tube misplacement. I converted to a Mac 3 blade. During the subsequent pulse check again attempted intubation. At this time I now had a gum rubber bougie to assist with the intubation to aid in confirmation of location. With the assistance of respiratory I again achieved a grade 3 view and attempted to pass the gum rubber bougie. I believe that the tube had passed through the glottic opening, and believe that it felt the tracheal rings with a gum rubber bougie. The endotracheal tube was advanced, and a new end-tidal CO2 detector was utilized. There was minimal color change. At approximately the same time we were able to retrieve the glide scope. This time at the glide scope and with the assistance of a video laryngoscopy it was clear that the endotracheal tube had entered the esophagus, and the tube was removed. Again he proceeded with [id number] ventilation. During this entire process the patient was still requiring chest compressions. During the next attempt during a pulse check, and with the assistance of a gum rubber bougie, and with significant difficulty I was able to pass the gum rubber bougie between the vocal cords. A 7.5 endotracheal tube was advanced into the trachea and the gum rubber bougie removed. End-tidal CO2 change was confirmed. The endotracheal tube was then secured. Complications: 3 intubation attempts without successful end-tidal color change. Fourth attempt with the assistance of video laryngoscopy and gum rubber bougie produce successful intubation Findings: Significantly anterior airway, difficult airway Specimens: not applicable Estimated blood loss: Zero
--- NOTE | 2017-06-06 20:55 | Discharge Summary ---
Discharge Summary Date of Service Jun 06, 2017. Discharge Summary Admission Date: May 31, 2017 at 15:55 Discharge Date: Jun 06, 2017 Discharge Disposition: Home () Principal Diagnosis: LIVER FAILURE, LIVER MASS DIC? SEPSIS? ARF UTI PNEUMONIA PE? THROMBOCYTOPENIA ASPIRATION? BLEEDING IN AIRWAY? Secondary Diagnoses/Problems: for type 2 diabetes on insulin, chronic kidney disease stage III, anxiety, hyperlipidemia, hypertension, history of malignant melanoma of the skin and also history of colon cancer status post surgery many years ago. Procedures: CT HEAD WITHOUT CONTRAST: 1. No acute intracranial abnormality. 2. Apparent soft tissue defect of the subcutaneous tissue in the right temporal region. This may be artifactual. Correlate clinically. CT ABD/PELVIS:05/31/17 1. Findings suspicious for a mass within the liver. Further evaluation with contrast-enhanced CT or MR is recommended, especially given the patient's underlying hepatocellular risk factors. 2. Findings consistent with cirrhosis. The presence of a small amount of abdominal pelvic ascites could suggest portal hypertension, although there is no splenomegaly or gross evidence of varices allowing for noncontrast technique. 3. Gallbladder wall thickening is likely secondary to the presence of cirrhosis and potential portal hypertension. No gallbladder distention to suggest cholecystitis. 4. Postsurgical changes of sigmoidectomy. No bowel obstruction. 5. Limited visualization of the appendix within the right lower quadrant fluid. 6. Right pleural effusion and basilar atelectasis LIVER US: 1. Heterogeneous liver architecture consistent with hepatic cirrhosis. 2. Trace perihepatic ascites. 3. Several right as well as left hepatic lobe hypodense nodules measuring 1.2 cm or less respectively. 4. The possibly of metastatic disease is a consideration. 5. Study is otherwise negative. RENAL US: Small bilateral renal cysts. No evidence for hydronephrosis CHEST CT: 1. Moderate right basilar consolidative change.. 2. Right and to lesser extent left pleural effusion. 3. Moderate cardiomegaly. 4. Mild body wall anasarca. 6. Heterogeneous liver architecture raising the possibility of metastatic disease. 7. Upper abdominal ascites. B/L LOWER EXTREMITY DOPPLER: There is no sonographic evidence of deep venous thrombosis identified in the right or left lower extremity. V/Q SCAN: PE present. CT HEAD 06/05/17: 1. No acute intracranial abnormality. 2. Persistent apparent soft tissue defect along the right temporoparietal region. Correlate clinically. CT ABD/PELVIS 06/05/17: 1. The most significant change since the prior exam appears to be increased basilar passive atelectasis with increasing right pleural effusion. Otherwise stable examination. 2. Cirrhosis with possible portal hypertension evidenced by ascites, gallbladder wall thickening, and potential portal enterography at the duodenum though the spleen is not enlarged. 3. Unchanged small volume of abdominal pelvic ascites. 4. Worsening anasarca. 5. Diffusely infiltrated appearance of the liver concerning for underlying lesions, metastatic disease not excluded though the concern is for a hepatocellular primary given underlying hepatocellular disease. Differential considerations include heterogeneous fatty deposition. Contrast-enhanced MR of the liver to be considered. 6. Postsurgical changes of sigmoidectomy. 7. Nonobstructing right renal calculus. ECHO: Sinus tachycardia was present during the echocardiogram. * There is a small circumferential pericardial effusion. * There are no echocardiographic indications of cardiac tamponade. * There is moderate concentric left ventricular hypertrophy. * No regional wall motion abnormalities noted. * The left ventricle is hyperdynamic. * The LV Ejection Fraction = >70 %. * The right ventricle is hyperdynamic. * There is no significant valvular stenosis or regurgitation. Consultations: NEPHROLOGY GI Admission Information HPI (per Admitting provider): She is an 87-year-old female with significant past medical history of diabetes type 2, chronic kidney disease stage III, anxiety, hyperlipidemia, hypertension, and also history of malignant melanoma of the skin and colon cancer, apparently has been complaining of nonspecific URI symptoms followed by abdominal distention and discomfort for the last 2 days. She also complains to have extreme tiredness and fatigue with it. She complains to have frequent low volume urine without any dysuria. She does not have any fever, chills or rigors. She was seen in the clinic today and I have sent in to the ER for further evaluation. In the Emergency Room, she was noted to have abdominal distention with ascites. CT scan did show cirrhotic liver and her white count elevated and UA suggestive of infection, but given the history of colon cancer, the liver mass and/or cirrhosis has to be evaluated for that. From this point, she was admitted to medical floor for continuation of care. Physical Exam (per Admitting): GENERAL: In the Emergency Room, she was not having any acute distress, but she looks pale and dry. VITAL SIGNS: Her temperature is 36.9, pulse of 76, blood pressure 120/69, saturation 93% on room air. HEENT: Unremarkable except dryness of the mucous membrane. NECK: Supple. CHEST: Clear to auscultate bilaterally. HEART: S1, S2 regular. ABDOMEN: Distended, soft, mildly tender in the hypogastrium. Renal angles were not tender. Cutaneous edema and moderate ascites on clinical examination. Degroot sign negative. EXTREMITIES: 1+ edema bilaterally. MUSCULOSKELETAL SYSTEM: Did not show any acute arthritis involving any joint. CENTRAL NERVOUS SYSTEM: She was alert and awake, oriented, generally weak but no focal sensory and/or motor deficit appreciated Hospital Course 87F PRESENTED WITH URI AND DISTENDED ABDOMEN AND FOUND TO HAVE POSSIBLE UTI AND NEW LIVER CIRRHOSIS AND LIVER MASS AND ARF WITH CR 2.2 AND LEUKOCYTOSIS. WAS TREATED WITH BOARD SPECTRUM CEFEPIME AND IV VANCOMYCIN AND GENTLE FLUIDS. SEEN BY GI AND RECOMMENDED MRI OR CT LIVER WITH CONTRAST. NEPHROLOGY SIGNED OFF CR POSSIBLE NEW BASELINE. RENAL US UNREMARKABLE.BUT NOT GETTING BETTER. STILL FEELING WEAK. CT CHEST SHOWED POSSIBLE PNEUMONIA. CX NO GROWTH.ABX CHANGED TO ROCEPHIN AND DOXYCYCLINE. WAS GETTING TACHYCARDIC. V/Q SCAN DONE YESTERDAY SHOWS PE. LOWER EXTREMITY DOPPLER NEGATIVE FOR DVT. STARTED O IV HEPARIN BUT WAS STOPPED LAST NIGHT PTT>300 AND DEVELOPED BRUISES. TODAY RADIOLOGY THINKS PERFUSION DEFECTS MOSTLY FROM ATELECTASIS AND THINKS POSSIBLY INTERMEDIATE PROBABILITY OF PE.ALSO PATIENT BECAME LETHARGIC TODAY. VITALS STABLE.LAST NIGHT CT ABD/PELVIS WITH OUT CONTRAST SHOWS POSSIBLE HEPATOCELLULAR CARCINOMA. LFTS TODAY SHOWED AST 2000. T.BILIRUBIN 3.5.PLATELETS TRENDING DOWN LAST SEVERAL DAYS AND TODAY IN 60'S. HIT STUDY DONE COUPLE OF DAYS AGO WAS NEGATIVE.AMMONIA LEVEL WAS 67 YESTERDAY TODAY 57. ASLO WBC TRENDING UP TO 25 TODAY.CONSULTED HEME /ONCO AND ID TODAY. BROADENED ABX TO IV PRIMAXIN, IV VANCOMYCIN AND PO VANCOMYCIN. REPEATING CX INCLUDING C.DIFF. HEME/ONCO THINKS PATIENT CONDITION MOST LIKELY FROM LIVER FAILURE. EXPLAINED TO FAMILY THAT POSSIBLE LIVER CANCER. PATIENT NOT GETTING BETTER FAMILY WANTS PATIENT TO BE TRANSFERRED TO [facility]. [facility] ACCEPTED THE PATIENT BUT AROUND 1230 PATIENT BECAME UNRESPONSIVE AND BOUCHRA FELICIANO WAS CALLED. CPR WAS INITIALED IMMEDIATELY AND CODE WAS RUN PER ACLS PROTOCOL BY CARDIOLOGY AND CRITICAL CARE. PEA ON MONITOR.AFTER ABOUT 20MINUTES PATIENT HAD RETURN OF SPONTANEOUS CIRCULATION AND WAS TRANSFERRED TO ICU WHERE SHE HAD ANOTHER CODE. AT THAT AFTER DISCUSSING WITH FAMILY THEY WERE INCLINED FOR DNR BUT BY THEN PATIENT . PATIENT TODAY 06/06/17 AT 1328. CAUSE OF MOST LIKELY ACUTE PE ASPIRATION BLEEDING IN THE AIRWAY, SECONDARY TO LIVER FAILURE FROM POSSIBLE LIVER CANCER POSSIBLE SEPSIS DIC? ACUTE RENAL FAILURE HOSPITAL COURSE 1. Urinary tract infection. Patient not feeling well received abx cx no groweth will reculture CURRENTLY ON IV VANCO AND PRIMAXIN 2. Acute kidney injury. Her creatinine seems to be normal before this episode,.Presented with Cr 2.1. On fluids abx as above renal us unremarkable cr 1.6 YESTERDAY BUT AGAIN 2.0 TODAY consulted nephrology gentle fluids f/u labs 3.Possible Pneumonia on ct chest WAS ON ROCEPHIN AND DOXY BUT ABX ABOVE NOW 4. Pericardial effusion on ct scan echo trace pericardial effusion, moderate LVH 5. PE? tachycardia d dimer elevated venous Doppler negative v/q scan- PE present 06/05/17 started on iv heparin IV HEPARIN STOPPED LAST NIGHT DUE TO ELEVATED PTT AND BRUISES RADIOLOGY NOW THINKS PERFUSION DEFECTS MOSTLY FROM ATELECTASIS AND CHANGES TO INTERMEDIATE PROBABILITY. 6. New diagnosis of cirrhosis, most likely secondary to fatty liver disease. ct abd/pelvis questionable left lobe lesion. liver US- same Negative hepatic viral panel ammonia 67 started on lactulose GI plans for out patient followup will discuss with GI 6. Hepatic lesion. May need MR or liver CT as per GI evaluation. Possibly secondary to metastatic disease, given the history of colon cancer. cannot give contrast secondary to ELYSE. Needs f/u with GI 7. Diabetes type 2 on insulin. On sliding scale coverage while in the hospital. 8. Hyperlipidemia. Holding her statin at this time. 9. Hypertension. On hydralazine. Added Lopressor as tachycardic and BP on higher side and Moderate concentric LVH on echo.will monitor 10. Gastrointestinal prophylaxis with Protonix. 11. Deep venous thrombosis prophylaxis . CURRENTLY HEPARIN STOPPED BECAUSE OF ELEVATED PTT 12. Code status. full code. DISPOSITION Total time spent on discharge = 30MINUTES This includes examination of the patient, discharge planning, medication reconciliation, and communication with other providers. Discharge Instructions NO D/C INSTRUCTIONS PATIENT
== END 2017-06-06 15:31 | disposition expired | DRG 682 ==
LOC: C.EDB 12:03 → C.4E 15:55 → ENRESERV 16:05 → C.2T 06-06 11:04 → C.MSICU 06-06 13:07
PROVIDERS: ADMIT Internal Medicine; ATTEND Internal Medicine
PROC: 0BH17EZ Insertion of Endotracheal Airway into Trachea, Via Natural or Artificial Opening (ICD-10-PCS; principal; 2017-06-06)
DX: N17.9 Acute kidney failure, unspecified (principal); J18.9 Pneumonia, unspecified organism; N39.0 Urinary tract infection, site not specified; E78.5 Hyperlipidemia, unspecified; E11.22 Type 2 diabetes mellitus with diabetic chronic kidney disease; N18.3 Chronic kidney disease, stage 3 (moderate); F41.9 Anxiety disorder, unspecified; I12.9 Hypertensive chronic kidney disease with stage 1 through stage 4 chronic kidney disease, or unspecified chronic kidney disease; K76.0 Fatty (change of) liver, not elsewhere classified; I25.10 Atherosclerotic heart disease of native coronary artery without angina pectoris; D72.829 Elevated white blood cell count, unspecified; Z79.02 Long term (current) use of antithrombotics/antiplatelets; Z79.4 Long term (current) use of insulin; Z79.899 Other long term (current) drug therapy; Z88.1 Allergy status to other antibiotic agents